=== PATIENT | female | born 1955 | race Caucasian/White ===

== ENCOUNTER 2018-01-08 23:10 | Inpatient (IN) | payer MEDICAID, MEDICARE ==
--- NOTE | 2018-01-08 23:41 | ER Document Report ---
ED General - General Chief Complaint: General Weakness Stated Complaint: WEAKNESS Time Seen by Provider: 01/08/18 23:26 Notes: Patient is a 60-year-old female presents with complaint of waking up this morning with severe headache. No only. No chest pain. No abdominal pain. No fever. Patient says that she also notes that she is weak. She has been having progressively worsening difficulty ambulating throughout the day. She had to be brought back to the room in a wheelchair. She also is having a lot of difficulty swallowing and some difficult breathing. She assumed that maybe she was having some throat swelling in her throat because she is having difficulty swallowing foods and liquids. She denies any itching or rash. No new medications. She might be on a blood thinner but she is not sure. Patient's daughter is at bedside says she does have a stent. Patient did take Ambien today but her symptoms were ongoing before taking the Ambien. TRAVEL OUTSIDE OF THE [place] IN LAST 30 DAYS: No - Related Data Allergies/Adverse Reactions: codeine [Codeine] Allergy (Verified 02/17/13 00:33) amitriptaline Allergy (Uncoded 02/17/13 00:33) Past Medical History - Social History Smoking Status: Unknown if Ever Smoked Frequency of alcohol use: None Drug Abuse: None Family History: Reviewed & Not Pertinent, Other - Past Medical History Cardiac Medical History: Reports: Hx Hypercholesterolemia, Hx Hypertension GI Medical History: Reports: Hx Irritable Bowel Psychiatric Medical History: Reports: Hx Depression Past Surgical History: Reports: Hx Cholecystectomy, Hx Hysterectomy Review of Systems - Review of Systems Notes: My Normal Review Basic REVIEW OF SYSTEMS: CONSTITUTIONAL : Denies fever, chills, or sweats. Denies recent illness. EENT: Denies eye, ear, throat, or mouth pain or symptoms. Denies nasal or sinus congestion. CARDIOVASCULAR: Denies chest pain. RESPIRATORY: Denies cough, cold, or chest congestion. Denies shortness of breath, difficulty breathing, or wheezing. GASTROINTESTINAL: Denies abdominal pain. Denies nausea, vomiting, or diarrhea. MUSCULOSKELETAL: Denies neck or back pain or joint pain or swelling. SKIN: Denies rash or skin lesions. NEUROLOGICAL: Denies altered mental status or loss of consciousness. Had a headache this am. difficulty swallowing. Ataxia. ALL OTHER SYSTEMS REVIEWED AND NEGATIVE. Physical Exam - Vital signs Vitals: Temp Pulse Resp BP Pulse Ox 98.8 F 79 16 175/75 H 96 01/08/18 23:20 01/08/18 23:20 01/08/18 23:20 01/08/18 23:20 01/08/18 23:20 - Notes Notes: General Appearance: Well nourished, alert, cooperative, no acute distress, no obvious discomfort. Vitals: reviewed, See vital signs table. Head: no swelling or tenderness to the head Eyes: PERRL, EOMI, Conjuctiva clear Mouth: No decreasd moisture Throat: No tonsillar inflammation, No airway obstruction, No lymphadenopathy. No glossal oropharyngeal edema. Neck: Supple, no neck tenderness, Lungs: No wheezing, No rales, No rhonci, No accessory muscle use, good air exchange bilaterally. Heart: Normal rate, Regular rythm, No murmur, no rub Abdomen: Normal BS, soft, No rigidity, No abdominal tenderness, No guarding, no rebound, Extremities: Patient is able to lift both legs off the bed but is we can do so. She does have some drift of the right lower extremity. She is able lift both arms off the bed. Right upper extremity is shaky but she is able to hold against gravity., good pulses in all extremities, no swelling or tenderness in the extremities, no edema. Skin: warm, dry, appropriate color, no rash Neuro: speech clear, oriented x 3, normal affect, responds appropriately to questions. Sensation intact. Cranial nerves II through XII are intact but she may be has some quivering to the left side of her face when she tries to do full smile. Not tested because patient was unable to walk back to the room and had to be brought back in a wheelchair. Course - Re-evaluation Re-evalutation: 01/08/18 23:35 I have just evaluated the patient. Patient patient's presentation is suspect most like she has had a stroke either ischemic or hemorrhagic. A basis and the fact that she woke up with a severe headache, she has ataxia, she has sensation of difficulty swallowing, and she has weakness. She initially seemed that there difficult swelling was due to throat swelling however since this morning she has had difficulty swallowing foods and liquids and she has no stridor and no evidence of pharyngeal swelling on exam and no visible neck swelling. I therefore suspect that this is more of a dysphagia from probable stroke. Will take her straight to CT scan. I have ordered blood work. Patient will be closely monitored. 01/09/18 01:53 Reevaluation patient's exam is about the same. Still a bit weaker on the right side with her lower extremity. May be a little weaker than left. Not appreciating any true facial droop however the family describe what sounds to be some facial droop earlier today where they felt like her face looks swollen and was not moving as well. Her speech is still little bit slurred. I suspect that the patient possibly had a stroke. There is no evidence of bleeding and therefore I have given the patient an aspirin. Patient does not have her med list with her. I did see where she is to be on thyroid and therefore ordered a thyroid panel but I think it is unlikely that this was causing her problem. I did speak with the hospitalist, Dr. Longoria, who agrees to admit the patient. Dictation of this chart was performed using voice recognition software; therefore, there may be some unintended grammatical errors. - Vital Signs Vital signs: Temp Pulse Resp BP Pulse Ox 98.8 F 79 16 175/75 H 96 01/08/18 23:20 01/08/18 23:20 01/08/18 23:20 01/08/18 23:20 01/08/18 23:20 - Laboratory Result Diagrams: 01/08/18 23:34 01/08/18 23:34 Laboratory results interpreted by me: 01/08/18 01/09/18 23:34 00:06 Potassium 3.0 L* Chloride 94 L Glucose 258 H Urine Protein 100 H Urine Glucose (UA) 50 H Urine Urobilinogen 2.0 H Discharge - Discharge Clinical Impression: Weakness Dysphagia Qualifiers: Dysphagia type: unspecified Qualified Code(s): R13.10 - Dysphagia, unspecified Condition: Stable Disposition: ADMITTED OBSERVATION Admitting Provider: Hospitalist Unit Admitted: IMCU Referrals: SHELLI OH MD [ACTIVE STAFF] - Follow up as needed
[2018-01-08 23:46] LABS: ABSOLUTE EOSINOPHILS # (AUTO) 0.1 10^3/uL (0.0-0.6); ABSOLUTE LYMPHOCYTES (AUTO) 2.4 10^3/uL (0.5-4.7); ABSOLUTE MONOCYTES (AUTO) 0.5 10^3/uL (0.1-1.4); BASOPHILS % (AUTO) 0.3 % (0-2); EOSINOPHILS % (AUTO) 1.3 % (0-6); HEMATOCRIT 37.3 % (36.0-47.0); HEMOGLOBIN 13.2 g/dL (12.0-15.5); LYMPHOCYTES % (AUTO) 23.4 % (13-45); MEAN CORPUSCULAR HEMOGLOBIN 30.9 pg (27.0-33.4); MEAN CORPUSCULAR HGB CONC 35.3 g/dL (32.0-36.0); MEAN CORPUSCULAR VOLUME 88 fl (80-97); MONOCYTES % (AUTO) 5.4 % (3-13); PLATELET COUNT 201 10^3/uL (150-450); RED BLOOD COUNT 4.26 10^6/uL (3.72-5.28); SEGMENTED NEUTROPHILS % (AUTO) 69.6 % (42-78); TOTAL CELLS COUNTED % (AUTO) 100 %; WHITE BLOOD COUNT 10.1 10^3/uL (4.0-10.5)
--- NOTE | 2018-01-08 23:52 | RADIOLOGY REPORT (SQ) ---
EXAM DESCRIPTION: CT HEAD WITHOUT IV CONTRAST COMPLETED DATE/TME: 01/08/2018 23:33 CLINICAL HISTORY: 62 years Female, headache, weakness, ataxia COMPARISON: None. TECHNIQUE: No contrast. Coronal and sagittal reformat. This exam was performed according to our departmental dose-optimization program, which includes automated exposure control, adjustment of the mA and/or kV according to patient size and/or use of iterative reconstruction technique. FINDINGS: No hemorrhage or infarct. No mass, mass effect, or midline shift. Brain and extra-axial structures appear intact. IMPRESSION: Normal CT of the head.
[2018-01-08 23:55] LABS: INTERNATIONAL RATION (INR) 0.87; PROTHROMBIN TIME 12.3 SEC (11.4-15.4)
--- NOTE | 2018-01-08 23:57 | RADIOLOGY REPORT (SQ) ---
EXAM DESCRIPTION: XR CHEST 1 VIEW COMPLETED DATE/TME: 01/08/2018 23:34 CLINICAL HISTORY: 62 years Female, weakness COMPARISON: None. NUMBER OF VIEWS/TECHNIQUE: 1/AP FINDINGS: Adequate lung volume, clear parenchyma, normal cardiac silhouette, and intact bony thorax. IMPRESSION: No acute cardiopulmonary findings.
[2018-01-08 23:59] LABS: ALANINE AMINOTRANSFERASE 24 U/L (9-52); ALKALINE PHOSPHATASE 85 U/L (38-126); ANION GAP 15 (5-19); ASPARTATE AMINO TRANSFERASE 28 U/L (14-36); BILIRUBIN,DIRECT 0.3 mg/dL (0.0-0.4); BILIRUBIN,TOTAL 0.6 mg/dL (0.2-1.3); BLOOD UREA NITROGEN 10 mg/dL (7-20); CALCIUM 9.1 mg/dL (8.4-10.2); CARBON DIOXIDE 30 mmol/L (22-30); CHLORIDE 94 mmol/L (98-107); GLUCOSE 258 mg/dL (75-110); SODIUM 139.3 mmol/L (137-145); TOTAL PROTEIN 7.4 g/dL (6.3-8.2)
[2018-01-09 00:09] LABS: PARTIAL THROMBOPLASTIN TIME 26.3 SEC (23.5-35.8)
[2018-01-09 00:31] LABS: APPEARANCE,URINE CLEAR; BILIRUBIN,URINE NEGATIVE (NEGATIVE); COLOR,URINE YELLOW; GLUCOSE, URINE 50 mg/dL (NEGATIVE); KETONES,URINE NEGATIVE (NEGATIVE); LEUKOCYTE ESTERASE,URINE NEGATIVE (NEGATIVE); NITRITE,URINE NEGATIVE (NEGATIVE); PROTEIN,URINE 100 mg/dL (NEGATIVE); URINE SPECIFIC GRAVITY 1.028
[2018-01-09] MEDS ORDERED: ASPIRIN 325 MG TABLET PO ONE (01:51)
[2018-01-09] MEDS ORDERED: POTASSI CL 20 MEQ/50 ML RIDER 20 MEQ/50 ML RTUPB IV ONE ×3 (01:55→05:37)
[2018-01-09] MEDS ORDERED: MAGNESIUM HYDROXIDE SUSP 30 ML UDCUP PO PRN (01:58)
[2018-01-09] MEDS ORDERED: DOCUSATE SODIUM 100 MG CAPSULE PO PRN (01:58)
[2018-01-09] MEDS ORDERED: ACETAMINOPHEN 325 MG TABLET PO PRN (01:58)
[2018-01-09] MEDS ORDERED: ATORVASTATIN CALCIUM 80 MG TABLET PO ONE (02:15)
[2018-01-09 02:29] LABS: FREE T3 2.29 pg/mL (2.77-5.27); FREE T4 (FREE THYROXINE) 0.99 ng/dL (0.78-2.19)
[2018-01-09 02:39] LABS: URINE AMPHETAMINES SCREEN NEGATIVE; URINE BARBITURATES SCREEN NEGATIVE; URINE BENZODIAZEPINES SCREEN NEGATIVE; URINE COCAINE SCREEN NEGATIVE; URINE MARIJUANA (THC) SCREEN NEGATIVE; URINE METHADONE SCREEN NEGATIVE; URINE PHENCYCLIDINE SCREEN NEGATIVE
[2018-01-09 02:43] LABS: THYROID STIMULATING HORMONE 3.05 uIU/mL (0.47-4.68)
[2018-01-09] MEDS ORDERED: POTASSIUM CHLORIDE 10 MEQ CAPSULE.ER PO ONE (02:52)
--- NOTE | 2018-01-09 03:05 | PDOC H&P ---
History of Present Illness Admission Date/PCP: 01/09/18 02:15 Patient complains of: Difficulty swallowing History of Present Illness: HITESH KENT is a 62 year old female with a past medical history of schizophrenia on Zyprexa, Risperdal, Cogentin and Zoloft who presents after awakening with headache later developing difficulty with ambulation and weakness to the left side of her face. In the emergency room she is found to have an unremarkable workup and referred to the hospitalist for observation. Patient denies previous episode but further explains her belief that headaches are caused by worms beneath the skin of her nose ( her nose is severely excoriated from scratching) she also describes the weakness of her face in a diagonal fashion from the top right to the bottom left. She is given a swallow screen and fails only to eat licorice promptly afterwards. Patient is a poor historian regarding her medication use. Past Medical History Cardiac Medical History: Reports: Hyperlipidema, Hypertension Psychiatric Medical History: Reports: Depression, Schizoaffective Disorder Hematology: Reports: None Infectious Medical History: Reports: None Past Surgical History Past Surgical History: Reports: Cardiac Catheterization - stent, Cholecystectomy , Hysterectomy Social History Information Source: Patient, [facility] Lives with: Family Smoking Status: Current Every Day Smoker Frequency of Alcohol Use: Rare - Advance Directive Resuscitation Status: Full Code Family History Family History: Other - Unknown to patient Parental Family History Reviewed: No Children Family History Reviewed: No Sibling(s) Family History Reviewed.: No Medication/Allergy Home Medications: Estradiol [Vivelle-Dot] 1 each TD PRN PRN 01/09/13 Febuxostat [Uloric 40 Mg Tablet] 40 mg PO DAILY 01/09/13 Levothyroxine Sodium [Synthroid 0.025 mg Tablet] 25 mcg PO DAILY 01/09/13 Lisinopril [Prinivil 10 mg Tablet] 10 mg PO DAILY 01/09/13 Benztropine Mesylate [Benztropine Mesylate 2 mg Tablet] 2 mg PO BID 02/21/13 Benztropine Mesylate [Cogentin 1 Mg Tablet] 1 mg PO QHS #20 tablet 02/21/13 Cephalexin Monohydrate [Keflex 500 mg Capsule] 500 mg PO QID #40 capsule Estradiol [Divigel] 0.075 mg TD DAILY 02/21/13 Hydrochlorothiazide 25 mg PO DAILY 02/21/13 Hydroxyzine Pamoate [Vistaril 50 Mg Capsule] 50 mg PO Q8 PRN 02/21/13 Loratadine [Alavert] 10 mg PO 02/21/13 Olanzapine [Zyprexa] 10 mg PO QHS #20 tablet 02/21/13 Polyethylene Glycol 3350 [Miralax Powder 17 Gm/Packet] 17 gm PO Q8 #10 powd.pack 02/21/13 Risperidone [Risperdal M-Tab] 2 mg PO 02/21/13 Sertraline HCl [Zoloft] 100 mg PO DAILY #20 tablet 02/21/13 Venlafaxine HCl ER [Effexor Xr 37.5 mg Cap.sr] 02/21/13 Allergies/Adverse Reactions: codeine [Codeine] Allergy (Verified 02/17/13 00:33) amitriptaline Allergy (Uncoded 02/17/13 00:33) Review of Systems ROS unobtainable: Due to mental status - Unreliable historian, admits to all questions affirmatively Physical Exam Vital Signs: Temp Pulse Resp BP Pulse Ox 98.8 F 78 21 H 175/75 H 94 01/08/18 23:20 01/08/18 23:25 01/09/18 02:00 01/08/18 23:20 01/09/18 02:00 General appearance: PRESENT: no acute distress, well-developed, well-nourished Head exam: PRESENT: atraumatic, normocephalic Eye exam: PRESENT: conjunctiva pink, EOMI, PERRLA. ABSENT: scleral icterus Ear exam: PRESENT: normal external ear exam Mouth exam: PRESENT: moist, tongue midline Neck exam: ABSENT: carotid bruit, JVD, lymphadenopathy, thyromegaly Respiratory exam: PRESENT: clear to auscultation nakul. ABSENT: rales, rhonchi, wheezes Cardiovascular exam: PRESENT: RRR. ABSENT: diastolic murmur, rubs, systolic murmur Pulses: PRESENT: normal dorsalis pedis pul Vascular exam: PRESENT: normal capillary refill GI/Abdominal exam: PRESENT: normal bowel sounds, soft. ABSENT: distended, guarding, mass, organolmegaly, rebound, tenderness Rectal exam: PRESENT: deferred Extremities exam: PRESENT: full ROM. ABSENT: calf tenderness, clubbing, pedal edema Neurological exam: PRESENT: alert, awake, oriented to person, oriented to place , oriented to time, oriented to situation, CN II-XII grossly intact. ABSENT: motor sensory deficit Psychiatric exam: PRESENT: appropriate affect, normal mood. ABSENT: homicidal ideation, suicidal ideation Skin exam: PRESENT: dry, intact, warm. ABSENT: cyanosis, rash Results Impressions: Head CT 01/08/18 23:33 IMPRESSION: Normal CT of the head. Chest X-Ray 01/08/18 23:34 IMPRESSION: No acute cardiopulmonary findings. Assessment & Plan - Diagnosis (1) Schizophrenia Is this a current diagnosis for this admission?: Yes Plan: Supportive measures, resume outpatient regiment, consider psychiatry consult (2) Morbid obesity Is this a current diagnosis for this admission?: Yes Plan: Morbid obesity will evaluate for metabolic cause with evaluation of thyroid function and dietitian consultation (3) Tobacco abuse Is this a current diagnosis for this admission?: Yes Plan: Tobacco Dependence patient received tobacco cessation counseling and offered nicotine replacement options (4) Hyperglycemia Is this a current diagnosis for this admission?: Yes Plan: Evaluate A1c - Time Time Spent: 30 to 50 Minutes
[2018-01-09] MEDS ORDERED: OLANZAPINE 5 MG TABLET PO ONE (03:45)
[2018-01-09] MEDS ORDERED: BENZTROPINE MESYLATE 1 MG TABLET PO ONE (03:45)
--- NOTE | 2018-01-09 06:12 | EKG REPORT ---
SEVERITY:- ABNORMAL ECG - SINUS RHYTHM ABNRM R PROG, CONSIDER ASMI OR LEAD PLACEMENT NONSPECIFIC ST-T CHANGES, DIFFUSE : Confirmed by: Alvarado Delong MD 09-Jan-2018 06:11:47
[2018-01-09 06:36] LABS: CHOLESTEROL 127.67 mg/dL (0-200); TRIGLYCERIDES 219 mg/dL (<150)
[2018-01-09 06:46] LABS: DIRECT LDL 49 mg/dL (<100)
[2018-01-09 06:49] LABS: VLDL CHOLESTEROL 43.8 mg/dL (10-31)
[2018-01-09] MEDS: HEPARIN SOD (PORCINE) 5,000 UNIT/ML 1 ML SYRINGE SUBCUT SCH ×3 (07:12→22:34)
[2018-01-09] MEDS ORDERED: ASPIRIN 325 MG TABLET, ENT COATED PO SCH (10:00)
[2018-01-09] MEDS: RISPERIDONE 1 MG TABLET PO SCH ×2 (10:55→14:18)
[2018-01-09] MEDS: POTASSIUM CHLORIDE 20 MEQ/50 ML RTU IV SCH ×2 (10:59→14:27)
[2018-01-09] MEDS ORDERED: ONDANSETRON HCL 8 MG TABLET PO PRN (13:15)
--- NOTE | 2018-01-09 13:20 | Progress Note ---
Provider Note Provider Note: This is 62 years old female patient with schizophrenia admitted this morning with chief complaint of difficulty swallowing. On the floor patient evaluated by the nurse in charge of her and patient able to swallow without difficulty. Accept this patient on with her primary set attending.
[2018-01-09] MEDS: HYDROCHLOROTHIAZIDE 25 MG TABLET PO SCH (14:36)
--- NOTE | 2018-01-09 15:45 | RADIOLOGY REPORT (SQ) ---
EXAM DESCRIPTION: CAROTID DOPPLER COMPLETED DATE/TIME: 01/09/2018 2:42 pm REASON FOR STUDY: tia COMPARISON: CT brain 03/12/2010, 01/08/2018 TECHNIQUE: Grayscale ultrasound, Doppler velocity and spectra, and color Doppler images acquired of the extra-cranial carotid and vertebral arteries. Images stored on PACS. LIMITATIONS: None. FINDINGS: RIGHT CAROTID CCA Velocities: Within normal limits. ICA Velocities Peak systolic 0.94 m/s. End diastolic 0.29 m/s. Proximal ICA/CCA peak systolic ratio 1.3. Spectra normal. No significant plaque. LEFT CAROTID CCA Velocities: Within normal limits. ICA Velocities Peak systolic 1.15 m/s. End diastolic 0.34 m/s. Proximal ICA/CCA peak systolic ratio 1.35. Calcific plaque at the left carotid bifurcation without flow significant stenosis of the proximal lef t ICA VERTEBRAL ARTERIES: Antegrade flow. Normal waveforms. SUBCLAVIAN ARTERIES: Not evaluated OTHER: No other significant finding. IMPRESSION: No flow significant stenosis at the carotid bifurcations bilaterally. Antegrade pulsatile vertebral artery flow bilaterally COMMENT: Quality ID #[id number]: Velocity criteria are extrapolated from the diameter data as defined by t he Society of Radiologists in Ultrasound Consensus Conference. Radiology 2003: 229; 340-346. TECHNICAL DOCUMENTATION: JOB ID: [id number] [employer]- All Rights Reserved Reading location - IP/workstation name: [facility]-[email or web address]
[2018-01-09] MEDS ORDERED: FLUCONAZOLE 100 MG TABLET PO ONE (16:00)
[2018-01-09] MEDS ORDERED: AMLODIPINE BESYLATE 10 MG TABLET PO ONE (16:15)
[2018-01-09] MEDS: ZOLPIDEM TARTRATE 5 MG TABLET PO SCH (20:23)
[2018-01-09] MEDS ORDERED: (PENDING PHARMACY ID) (Zolpidem Tartrate [Ambien] 10 MG) PO SCH (22:00)
[2018-01-09] MEDS ORDERED: ZOLPIDEM TARTRATE 5 MG TABLET PO SCH (22:00)
[2018-01-09] MEDS ORDERED: ATORVASTATIN CALCIUM 80 MG TABLET PO SCH (22:00)
[2018-01-09] MEDS: GABAPENTIN 400 MG CAPSULE PO SCH (22:34)
[2018-01-09] MEDS: ATORVASTATIN CALCIUM 40 MG TABLET PO SCH (22:34)
[2018-01-09] MEDS: OLANZAPINE 5 MG TABLET PO SCH (22:34)
[2018-01-09] MEDS: BENZTROPINE MESYLATE 1 MG TABLET PO SCH (22:40)
[2018-01-10] MEDS: HEPARIN SOD (PORCINE) 5,000 UNIT/ML 1 ML SYRINGE SUBCUT SCH ×3 (06:05→22:53)
[2018-01-10] MEDS: GABAPENTIN 400 MG CAPSULE PO SCH ×3 (06:06→22:52)
[2018-01-10] MEDS: HYDROCHLOROTHIAZIDE 25 MG TABLET PO SCH (09:16)
[2018-01-10] MEDS: POTASSIUM CHLORIDE 10 MEQ CAPSULE.ER PO SCH (09:16)
[2018-01-10] MEDS: ASPIRIN 81 MG TABLET, ENT COATED PO SCH (09:16)
[2018-01-10] MEDS: CETIRIZINE 10 MG TABLET PO SCH (09:17)
[2018-01-10] MEDS: RISPERIDONE 1 MG TABLET PO SCH (09:17)
--- NOTE | 2018-01-10 12:42 | RADIOLOGY REPORT (SQ) ---
EXAM DESCRIPTION: MRI HEAD WITHOUT COMPLETED DATE/TIME: 01/10/2018 11:51 am REASON FOR STUDY: stroke COMPARISON: CT Brain 01/08/2018 Carotid Doppler 01/09/2018 TECHNIQUE: Multiplanar imaging includes non-contrasted T1, T2, FLAIR, and diffusion with ADC map seq uences. Images stored on PACS. LIMITATIONS: None. FINDINGS: ANATOMY: No developmental anomalies. Pituitary fossa normal. CSF SPACES: Normal in size and contour. No hemorrhage. CEREBRUM: Sulci and gyri normal in size and contour. Normal white matter signal on FLAIR imaging. No evidence of hemorrhage, mass, or extraaxial fluid collection. POSTERIOR FOSSA: Diffusion-weighted images are positive for acute ischemia in the left posterior infe rior cerebellar hemisphere and lateral medulla, best shown on diffusion images 5-7. No mass effect. No hemorrhage. On axial T2 weighted image 1, there is abnormal signal in the left cervical vertebral artery. This i s also seen on coronal T2 image 17, and is worrisome for a left vertebral artery dissection or thromb osis. CTA neck/[place] of [place] recommended. These findings were discussed with Dr. Wright, 1210 urs 01/10/2018. DIFFUSION IMAGING: Positive for acute ischemic change in the left PICA distribution ORBITS: No masses. Globes normal. PARANASAL SINUSES: No fluid levels. Mucosa normal. OTHER: 10 mm cystic nodule superficial lobe right parotid gland. This could represent a small benign mixed tumor. Malignant nodule could not entirely be excluded. IMPRESSION: Diffusion-weighted images are positive for nonhemorrhagic acute infarct in the left PICA distribution. Abnormal signal in the left vertebral artery on T2 weighted images. Findings are wor risome for dissection. This report was discussed with the patient's hospitalist physician as above. EVIDENCE OF ACUTE STROKE: Yes TECHNICAL DOCUMENTATION: JOB ID: [id number] [employer]- All Rights Reserved Reading location - IP/workstation name: [email or web address]
[2018-01-10] MEDS: ZOLPIDEM TARTRATE 5 MG TABLET PO SCH (22:14)
[2018-01-10] MEDS: ATORVASTATIN CALCIUM 40 MG TABLET PO SCH (22:52)
[2018-01-10] MEDS: OLANZAPINE 5 MG TABLET PO SCH (22:53)
[2018-01-10] MEDS: BENZTROPINE MESYLATE 1 MG TABLET PO SCH (22:53)
--- NOTE | 2018-01-11 00:26 | RADIOLOGY REPORT (SQ) ---
EXAM DESCRIPTION: CT NECK ANGIOGRAPHY WITHOUT THEN WITH IV CONTRAST, CT HEAD ANGIOGRAPHY WITHOUT THEN WITH IV CONTRAST COMPLETED DATE/TME: 01/10/2018 00:00 CLINICAL HISTORY: Stroke COMPARISON: CT of the head 01/08/2018 TECHNIQUE: Continuous axial CTA images of the head and neck obtained following the uncomplicated intravenous administration of 70 mL Omnipaque 350. 3-D/MIP reformatted images available. Overall contrast boluses delayed and suboptimal with significant venous contamination. FINDINGS: CTA HEAD: Anterior circulation: The intracranial internal carotid arteries have normal course and caliber without evidence of dissection, stenosis, or occlusion. The internal carotid arteries bifurcate into widely patent A1 and M1 segments of the anterior and middle cerebral arteries respectively. The anterior communicating artery is patent. The right posterior communicating artery is patent. The left posterior communicating artery is hypoplastic. No evidence of stenosis, occlusion, or aneurysm in the anterior circulation. No peripheral vascular pruning identified. Posterior circulation: Nondominant right vertebral artery terminates predominantly in the right PICA with minimal flow being supplied to basilar artery. Only the most distal portion of the left intracranial vertebral artery is filling. No flow identified in the left PICA. The basilar artery is patent and may be supplied abdominal by the posterior communicating artery/anterior circulation. The basilar artery bifurcates into widely patent P1 segments of the posterior cerebral arteries. No evidence of stenosis, occlusion, or aneurysm in the posterior cerebral arteries. CTA NECK: The aortic arch is widely patent. Mild atherosclerotic calcification of the thoracic aorta. Normal branch pattern arising from the superior surface of the aortic arch. The origins of the right brachiocephalic artery, right subclavian artery, right common carotid artery, left subclavian artery, and left common carotid artery are widely patent. Right carotid: The right common carotid artery is widely patent and bifurcates into widely patent internal and external carotid arteries. No evidence of stenosis, dissection, or occlusion. 0% stenosis by NASCET criteria. Left carotid: The left common carotid artery is widely patent and bifurcates into internal and external carotid arteries. Extensive atherosclerotic plaque at the origin of the left internal carotid artery No evidence of flow-limiting stenosis, dissection, or occlusion. 20% stenosis by NASCET criteria. Vertebral arteries: The origin of the right vertebral artery is patent. The right vertebral artery is patent throughout its course with diminutive caliber. No evidence of flow-limiting stenosis, dissection, occlusion of the right vertebral artery. The left vertebral artery is not identified arising from the left subclavian artery. The entire V1 segment of the left vertebral artery is not identified. There is mild reconstitution of flow flow in the V2 segment of the left vertebral artery at the level of the C3 and C4 vertebral levels. No definite flow identified in the V3 portion of the cervical vertebral artery. Nonvascular findings: No definite abnormalities of visualized neck soft tissues. Visualized lung apices demonstrate no pneumothorax. Visualized thyroid gland is unremarkable. No definite cervical lymphadenopathy. Visualized parotid and submandibular glands are unremarkable. No gross abnormalities of the pharynx or hypopharynx. Visualized orbits and globes are unremarkable. Visualized intracranial contents demonstrate no gross abnormalities. No definite acute abnormalities of visualized cervical spine. No definite facial bone fracture identified. Mastoid air cells are well aerated. Visualized paranasal sinuses are well aerated DLP: 653.36 mGy-cm IMPRESSION: 1. There is no flow identified throughout the majority of the left cervical vertebral artery with short segment minimal reconstitution of flow in the V2 portion of the left cervical vertebral artery at the level of the C3 and C4 vertebral bodies. These findings could be seen with vertebral artery dissection or occlusion. 2. The left intracranial (V4) segment of the left vertebral artery only fills at its most distal aspect likely retrograde. There is also no flow identified in the left PICA. 3. The right vertebral artery is likely nondominant and predominant supplies the right PICA with minimal flow provided to the basilar artery. 4. The basilar artery is likely supplied predominantly by the right posterior communicating artery/anterior circulation. 5. Approximately 20% stenosis of the proximal left internal carotid artery by NASCET criteria. 6. No abnormalities identified in the anterior intracranial circulation. 7. No evidence of stenosis involving the right carotid artery. Urgent finding reported to TUAN Malone at 01/10/2018 11:23 PM CDT This exam was performed according to our departmental dose-optimization program, which includes automated exposure control, adjustment of the mA and/or kV according to patient size and/or use of iterative reconstruction technique. 2011 [employer]- All Rights Reserved
[2018-01-11] MEDS: HEPARIN SOD (PORCINE) 5,000 UNIT/ML 1 ML SYRINGE SUBCUT SCH (05:05)
[2018-01-11] MEDS: GABAPENTIN 400 MG CAPSULE PO SCH ×2 (05:05→16:22)
[2018-01-11] MEDS ORDERED: HEPARIN SODIUM,PORCINE/D5W 25,000 UNIT/250 ML RTUINJ IV PRN (08:37)
--- NOTE | 2018-01-11 09:08 | PDOC PROGRESS REPORT ---
Subjective Progress Note for:: 01/10/18 Subjective:: The patient is resting comfortably. No new complaints. She presented with some altered mental status consistent with her mental illness, but also difficulty with walking, right upper and lower extremity weakness, dysphagia, and facial droop. No new complaints. Reason For Visit: ACUTE INFARCT,SCHIZOPHRENIA Physical Exam Vital Signs: Temp Pulse Resp BP Pulse Ox 97.6 F 70 16 143/85 H 94 01/10/18 11:03 01/10/18 12:00 01/10/18 12:00 01/10/18 12:00 01/10/18 12:00 General appearance: PRESENT: no acute distress, cooperative, morbidly obese Head exam: PRESENT: atraumatic, normocephalic Ear exam: PRESENT: normal external ear exam. ABSENT: bleeding, drainage Mouth exam: PRESENT: moist, neck supple. ABSENT: laceration Neck exam: ABSENT: JVD, lymphadenopathy, thyromegaly Respiratory exam: PRESENT: other - No increased work of breathing. No wheezes, rales, or rhonchi. No tactile fremitus. Cardiovascular exam: PRESENT: RRR. ABSENT: gallop, rubs, systolic murmur Pulses: PRESENT: normal dorsalis pedis pul GI/Abdominal exam: PRESENT: soft. ABSENT: distended, mass, organolmegaly, tenderness Rectal exam: PRESENT: deferred Extremities exam: ABSENT: clubbing, joint swelling, tenderness Musculoskeletal exam: ABSENT: deformity, dislocation Neurological exam: PRESENT: alert, awake, motor sensory deficit - Facial droop, right upper and lower extremity weakness. Psychiatric exam: PRESENT: other - psychosis. Skin exam: PRESENT: dry, intact, warm Results Impressions: Head CT 01/08/18 23:33 IMPRESSION: Normal CT of the head. Chest X-Ray 01/08/18 23:34 IMPRESSION: No acute cardiopulmonary findings. Carotid Doppler Study 01/09/18 02:01 IMPRESSION: No flow significant stenosis at the carotid bifurcations bilaterally. Antegrade pulsatile vertebral artery flow bilaterally Head MRI 01/10/18 00:00 IMPRESSION: Diffusion-weighted images are positive for nonhemorrhagic acute infarct in the left PICA distribution. Abnormal signal in the left vertebral artery on T2 weighted images. Findings are worrisome for dissection. This report was discussed with the patient's hospitalist physician as above. EVIDENCE OF ACUTE STROKE: Yes Assessment & Plan - Diagnosis (1) CVA (cerebrovascular accident) Qualifiers: CVA mechanism: unspecified Qualified Code(s): I63.9 - Cerebral infarction, unspecified Is this a current diagnosis for this admission?: Yes Plan: MRI indicates a cerebellar stroke. I discussed the patient with Dr. Paredes, and she recommends a CTA to investigate the possibility of a possible vertebral body dissection. Remainder of work up is pending. (2) Dysphagia Qualifiers: Dysphagia type: unspecified Qualified Code(s): R13.10 - Dysphagia, unspecified Is this a current diagnosis for this admission?: Yes Plan: As per MARKETING SEGMENT MANAGER (3) Hyperglycemia Is this a current diagnosis for this admission?: Yes Plan: HbA1c is 6.0. Actually DM II. but diet controlled. The patient should have diabetic teaching before discharge. Start Metformin 48 hours after last dye load. (4) Morbid obesity Is this a current diagnosis for this admission?: Yes Plan: Recommend reasonable weight loss. (5) Schizophrenia Is this a current diagnosis for this admission?: Yes Plan: Continue home medications. (6) Tobacco abuse Is this a current diagnosis for this admission?: Yes (7) Weakness Is this a current diagnosis for this admission?: Yes Plan: PT/OT once work up is completed. - Time Time Spent with patient: 35 or more minutes Medications reviewed and adjusted accordingly: Yes
--- NOTE | 2018-01-11 09:21 | PDOC TRANSFER SUMMARY ---
General Admission Date/PCP: 01/10/18 14:14 Resuscitation Status: Full Code - Transfer Diagnosis (1) CVA (cerebrovascular accident) Is this a current diagnosis for this admission?: Yes (2) Dysphagia Is this a current diagnosis for this admission?: Yes (3) Hyperglycemia Is this a current diagnosis for this admission?: Yes (4) Morbid obesity Is this a current diagnosis for this admission?: Yes (5) Schizophrenia Is this a current diagnosis for this admission?: Yes (6) Tobacco abuse Is this a current diagnosis for this admission?: Yes (7) Weakness Is this a current diagnosis for this admission?: Yes (8) Vertebral artery dissection Is this a current diagnosis for this admission?: Yes - Transfer Medications Home Medications: Aspirin [Aspirin EC] 81 mg PO DAILY 01/09/18 Atorvastatin Calcium [Lipitor 40 mg Tablet] 40 mg PO QHS 01/09/18 Cetirizine HCl [24Hour Allergy] 10 mg PO DAILY 01/09/18 Ergocalciferol (Vitamin D2) [Vitamin D2] 50,000 unit PO Q7D 01/09/18 Gabapentin [Neurontin] 800 mg PO TID 01/09/18 Hydrochlorothiazide [Hydrodiuril 25 mg Tablet] 25 mg PO QAM 01/09/18 Metronidazole 45 gm TP ASDIR PRN 01/09/18 Mupirocin 1 dose TP ASDIR PRN 01/09/18 Ondansetron HCl [Zofran 8 mg Tablet] 8 mg PO DAILYP PRN 01/09/18 Potassium Chloride [Klor-Con 10 Meq Capsule ER] 10 meq PO DAILY 01/09/18 Zolpidem Tartrate [Ambien] 10 mg PO QHS 01/09/18 Transfer Medications: Current Medications Acetaminophen (Tylenol 325 Mg Tablet) 650 mg PO Q4HP PRN PRN Reason: Temp greater than 101F Stop: 02/08/18 01:57 Last Admin: 01/09/18 22:42 Dose: 650 mg Aspirin (Ecotrin 81 Mg Ec Tablet) 81 mg PO DAILY [facility] Stop: 02/09/18 09:59 Last Admin: 01/10/18 09:16 Dose: 81 mg Atorvastatin Calcium (Lipitor 40 Mg Tablet) 40 mg PO QHS [facility] Stop: 02/08/18 21:59 Last Admin: 01/10/18 22:52 Dose: 40 mg Benztropine Mesylate (Cogentin 1 Mg Tablet) 1 mg PO QHS [facility] Stop: 02/08/18 21:59 Last Admin: 01/10/18 22:53 Dose: 1 mg Cetirizine HCl (Zyrtec 10 Mg Tablet) 10 mg PO DAILY [facility] Stop: 02/09/18 09:59 Last Admin: 01/10/18 09:17 Dose: 10 mg Docusate Sodium (Colace 100 Mg Capsule) 100 mg PO BIDP PRN PRN Reason: FOR CONSTIPATION Stop: 02/08/18 01:57 Last Admin: 01/11/18 06:43 Dose: 100 mg Ergocalciferol (Drisdol 50,000 Unit (1.25mg) Capsule) 50,000 unit PO Ramesh@1000 [facility] Stop: 02/14/18 09:59 Gabapentin (Neurontin 400 Mg Capsule) 800 mg PO Q8 [facility] Stop: 02/08/18 21:59 Last Admin: 01/11/18 05:05 Dose: 800 mg Heparin Sodium (Porcine) (Heparin Inj 1,000 Unit/Ml 10 Ml Vial) 0 - 12,000 unit IV .BOLUS PER PROTOCOL PRN; Protocol PRN Reason: RESPOND TO aPTT VALUE Stop: 02/10/18 11:37 Hydrochlorothiazide (Hydrodiuril 25 Mg Tablet) 25 mg PO QAM [facility] Stop: 02/08/18 14:59 Last Admin: 01/10/18 09:16 Dose: 25 mg Heparin Sodium/Dextrose (Heparin Rtu 25,000 Unit/250 Ml D5w Premix) 25,000 unit in 250 mls @ 0 mls/hr IV CONTINUOUS PRN; Protocol; Titrate PRN Reason: THIS MED IS NOT "PRN" Stop: 02/10/18 08:36 Magnesium Hydroxide (Milk Of Magnesia 30 Ml Udcup) 30 ml PO HSP PRN PRN Reason: FOR CONSTIPATION Stop: 02/08/18 01:57 Olanzapine (Zyprexa 5 Mg Tablet) 10 mg PO QHS [facility] Stop: 02/08/18 21:59 Last Admin: 01/10/18 22:53 Dose: 10 mg Ondansetron HCl (Zofran 8 Mg Tablet) 8 mg PO DAILYP PRN PRN Reason: NAUSEA Stop: 02/08/18 13:14 Last Admin: 01/09/18 14:27 Dose: 8 mg Potassium Chloride (Klor-Con 10 Meq Capsule Er) 10 meq PO DAILY [facility] Stop: 02/09/18 09:59 Last Admin: 01/10/18 09:16 Dose: 10 meq Risperidone (Risperdal 1 Mg Tablet) 2 mg PO DAILY [facility] Stop: 02/08/18 09:59 Last Admin: 01/10/18 09:17 Dose: 2 mg Sodium Chloride (Saline Flush 2.5 Ml Monoject Prefil Syrin) 2.5 ml IV Q8 [facility] Stop: 02/08/18 05:59 Last Admin: 01/11/18 05:10 Dose: 2.5 ml Zolpidem Tartrate (Ambien 5 Mg Tablet) 10 mg PO DAILY@1999 [facility] Stop: 01/16/18 19:59 Last Admin: 01/10/18 22:14 Dose: 10 mg - Allergies Allergies/Adverse Reactions: codeine [Codeine] Allergy (Unknown, Verified 01/09/18 10:05) amitriptyline [From Elavil] Allergy (Verified 01/09/18 10:04) Hospital Course Hospital Course: The patient was admitted to [facility]. She was given an aspirin. She had a CT head that was unremarkable. MRI of her brain indicated some small infarcts of her cerebellum. The radiologist was also concerned about the possibility of vertebral artery dissection, so a CTA neck was obtained that confirmed this suspicion. I discussed the patient with the ICU doctor and a neurosurgeon at [facility] in [place]. They accepted the patient in transfer and asked that I start her on a heparin drip. Nursing has advised me that the patient will need a PICC first. This has been ordered STAT. Physical Exam Vital Signs: Temp Pulse Resp BP Pulse Ox 98.3 F 67 14 152/73 H 96 01/11/18 07:44 01/11/18 07:44 01/11/18 07:44 01/11/18 07:44 01/11/18 07:44 Intake & Output 01/10/18 01/11/18 01/12/18 06:59 06:59 06:59 Intake Total 525 Balance 525 Weight 101.3 kg General appearance: PRESENT: no acute distress, cooperative Head exam: PRESENT: atraumatic, normocephalic Respiratory exam: PRESENT: other - No increased work of breathing. No wheezes, rales, or rhonchi. No tactile fremitus. Cardiovascular exam: PRESENT: RRR. ABSENT: gallop, rubs, systolic murmur GI/Abdominal exam: PRESENT: soft, other - Obese. Bowel sounds are distant. I am unable to evaluate the abdomen for organomegaly, masses, or hernias due to her body habitus.. ABSENT: tenderness Rectal exam: PRESENT: deferred Neurological exam: PRESENT: alert, awake, oriented to person, oriented to place , oriented to time, oriented to situation, CN II-XII grossly intact - Left sided facial droop, slight dysarthria, motor sensory deficit - 4/5 weakness on the right upper and lower extremity. Skin exam: PRESENT: dry, intact, warm Results Impressions: Head CT 01/08/18 23:33 IMPRESSION: Normal CT of the head. Chest X-Ray 01/08/18 23:34 IMPRESSION: No acute cardiopulmonary findings. Carotid Doppler Study 01/09/18 02:01 IMPRESSION: No flow significant stenosis at the carotid bifurcations bilaterally. Antegrade pulsatile vertebral artery flow bilaterally Head CTA 01/10/18 00:00 IMPRESSION: 1. There is no flow identified throughout the majority of the left cervical vertebral artery with short segment minimal reconstitution of flow in the V2 portion of the left cervical vertebral artery at the level of the C3 and C4 vertebral bodies. These findings could be seen with vertebral artery dissection or occlusion. 2. The left intracranial (V4) segment of the left vertebral artery only fills at its most distal aspect likely retrograde. There is also no flow identified in the left PICA. 3. The right vertebral artery is likely nondominant and predominant supplies the right PICA with minimal flow provided to the basilar artery. 4. The basilar artery is likely supplied predominantly by the right posterior communicating artery/anterior circulation. 5. Approximately 20% stenosis of the proximal left internal carotid artery by NASCET criteria. 6. No abnormalities identified in the anterior intracranial circulation. 7. No evidence of stenosis involving the right carotid artery. Urgent finding reported to TUAN Malone at 01/10/2018 11:23 PM CDT This exam was performed according to our departmental dose-optimization program, which includes automated exposure control, adjustment of the mA and/or kV according to patient size and/or use of iterative reconstruction technique. 2010 [employer]- All Rights Reserved Head MRI 01/10/18 00:00 IMPRESSION: Diffusion-weighted images are positive for nonhemorrhagic acute infarct in the left PICA distribution. Abnormal signal in the left vertebral artery on T2 weighted images. Findings are worrisome for dissection. This report was discussed with the patient's hospitalist physician as above. EVIDENCE OF ACUTE STROKE: Yes Neck CTA 01/10/18 00:00 IMPRESSION: 1. There is no flow identified throughout the majority of the left cervical vertebral artery with short segment minimal reconstitution of flow in the V2 portion of the left cervical vertebral artery at the level of the C3 and C4 vertebral bodies. These findings could be seen with vertebral artery dissection or occlusion. 2. The left intracranial (V4) segment of the left vertebral artery only fills at its most distal aspect likely retrograde. There is also no flow identified in the left PICA. 3. The right vertebral artery is likely nondominant and predominant supplies the right PICA with minimal flow provided to the basilar artery. 4. The basilar artery is likely supplied predominantly by the right posterior communicating artery/anterior circulation. 5. Approximately 20% stenosis of the proximal left internal carotid artery by NASCET criteria. 6. No abnormalities identified in the anterior intracranial circulation. 7. No evidence of stenosis involving the right carotid artery. Urgent finding reported to TUAN Malone at 01/10/2018 11:23 PM CDT This exam was performed according to our departmental dose-optimization program, which includes automated exposure control, adjustment of the mA and/or kV according to patient size and/or use of iterative reconstruction technique. 2010 [employer]- All Rights Reserved Plan Discharge Plan: Transfer to [facility]. Time Spent: Greater than 30 Minutes
[2018-01-11] MEDS: HYDROCHLOROTHIAZIDE 25 MG TABLET PO SCH (10:00)
[2018-01-11 10:16] LABS: ABSOLUTE EOSINOPHILS # (AUTO) 0.2 10^3/uL (0.0-0.6); ABSOLUTE LYMPHOCYTES (AUTO) 1.8 10^3/uL (0.5-4.7); ABSOLUTE MONOCYTES (AUTO) 0.4 10^3/uL (0.1-1.4); ABSOLUTE NEUT (AUTO) 6.5 10^3/uL (1.7-8.2); BASOPHILS % (AUTO) 0.4 % (0-2); EOSINOPHILS % (AUTO) 2.2 % (0-6); HEMATOCRIT 37.6 % (36.0-47.0); HEMOGLOBIN 12.8 g/dL (12.0-15.5); LYMPHOCYTES % (AUTO) 19.7 % (13-45); MEAN CORPUSCULAR HEMOGLOBIN 30.5 pg (27.0-33.4); MEAN CORPUSCULAR HGB CONC 34.1 g/dL (32.0-36.0); MEAN CORPUSCULAR VOLUME 89 fl (80-97); MONOCYTES % (AUTO) 4.2 % (3-13); PLATELET COUNT 167 10^3/uL (150-450); RED BLOOD COUNT 4.21 10^6/uL (3.72-5.28); RED CELL DISTRIBUTION WIDTH 14.3 % (11.5-14.0); SEGMENTED NEUTROPHILS % (AUTO) 73.5 % (42-78); TOTAL CELLS COUNTED % (AUTO) 100 %; WHITE BLOOD COUNT 8.9 10^3/uL (4.0-10.5)
[2018-01-11 10:24] LABS: INTERNATIONAL RATION (INR) 0.88; PROTHROMBIN TIME 12.4 SEC (11.4-15.4)
[2018-01-11 10:25] LABS: PARTIAL THROMBOPLASTIN TIME 32.7 SEC (23.5-35.8)
[2018-01-11] MEDS: ASPIRIN 81 MG TABLET, ENT COATED PO SCH (10:32)
[2018-01-11] MEDS: CETIRIZINE 10 MG TABLET PO SCH (10:32)
[2018-01-11] MEDS: POTASSIUM CHLORIDE 10 MEQ CAPSULE.ER PO SCH (10:32)
[2018-01-11] MEDS: RISPERIDONE 1 MG TABLET PO SCH (10:32)
--- NOTE | 2018-01-11 10:38 | RADIOLOGY REPORT (SQ) ---
EXAM DESCRIPTION: PICC INSERTION; U/S GUIDE FOR VASCULAR ACCESS; FLUORO/CV PLACEMENT COMPLETED DATE/TIME: 01/11/2018 10:06 am REASON FOR STUDY: no acess, heparin drip, pending transfer to [facility]; IV ACCESS COMPARISON: None. FLUOROSCOPY TIME: 32 seconds 1 images saved to PACS. TECHNIQUE: Fluoroscopic and ultrasound guided PICC placement. LIMITATIONS: None. PROCEDURE: After written consent and assessment were obtained, the patient was brought into the fluo roscopy room and place supine on the table. Ultrasound evaluation of potential access sites were perf ormed. After successfully identifying a patent left basilic vein, the left arm was prepped and draped in a sterile fashion along with the ultrasound probe. The entry site was anesthetized with 1% lidoca ine. A 21 gauge 7 cm needle was advanced through the skin and into the basilic vein under live ultras ound guidance. An ultrasound image was saved to PACS confirming access site. A .018 guide wire was then inserted through the needle and into the venous system. The needle was the removed and an 11 jennifer de scalpel was used to make a 1cm skin incision. A 5 fr peel-away sheath was advanced over the wire and into the venous system. A measurement was then made using the existing wire and live fluoroscopic guidance. The wire was then removed and the trimmed. The PICC was advanced through the peel-away she ath and into the venous system. The peel-away sheath was removed and the catheter was adhered to the patients arm with a stat lock. The catheter was then aspirated and flushed and a sterile bandage was placed over the access site. A fluoroscopic spot image was saved to PACS confirming the catheter tip within the superior vena cava. IMPRESSION: SUCCESSFUL PLACEMENT OF A 5 FR DUAL LUMEN 40 CM PICC IN THE LEFT BASILIC VEIN. COMMENT: Patient medication list reviewed: Yes- Quality ID# 130:Eligible professional attests to doc umenting in the medical record they obtained, updated, or reviewed the patient's current medications. . Quality ID 145: Final reports for procedures using fluoroscopy that document radiation exposure stephan yolette, or exposure time and number of fluorographic images (if radiation exposure indices are not avail able) Quality ID #76: The patient was prepped and draped using maximum sterile barrier technique including cap, mask, sterile gown, sterile gloves, a large sterile sheet, hand hygiene, and 2% Chlorhexidine fo r cutaneous antisepsis. When ultrasound is used, sterile ultrasound techniques are followed requiring sterile gel and sterile probes. TECHNICAL DOCUMENTATION: JOB ID: [id number] [employer]- All Rights Reserved rev-10/07 Reading location - IP/workstation name: [email or web address]
[2018-01-11] MEDS ORDERED: HEPARIN SOD (PORCINE) 1,000 UNIT/ML 10 ML VIAL IV PRN (11:38)
[2018-01-11 16:07] LABS: APPEARANCE,URINE CLEAR; BILIRUBIN,URINE NEGATIVE (NEGATIVE); COLOR,URINE STRAW; GLUCOSE, URINE NEGATIVE (NEGATIVE); KETONES,URINE NEGATIVE (NEGATIVE); LEUKOCYTE ESTERASE,URINE MODERATE (NEGATIVE); NITRITE,URINE NEGATIVE (NEGATIVE); PROTEIN,URINE NEGATIVE (NEGATIVE); URINE SPECIFIC GRAVITY 1.012; UROBILINOGEN,URINE NEGATIVE mg/dL (<2.0)
[2018-01-11 20:21] VITALS: BP 137/61
[2018-01-15] MEDS ORDERED: ERGOCALCIFEROL (VITAMIN D2) 50000 UNIT (1.25 MG) CAPSULE PO SCH (10:00)
== END 2018-01-11 21:09 | disposition short-term general hospital (02) | DRG 64 ==
LOC: ER 23:10 → EH 01-09 02:15 → 3W 01-09 04:25 → OBSVTOIN 01-10 14:14
PROVIDERS: ADMIT Internal Medicine; ATTEND Internal Medicine
PROC: 02HV33Z Insertion of Infusion Device into Superior Vena Cava, Percutaneous Approach (ICD-10-PCS; principal; 2018-01-11)
PROC: B518YZA Fluoroscopy of Superior Vena Cava using Other Contrast, Guidance (ICD-10-PCS; 2018-01-11)
PROC: B548ZZA Ultrasonography of Superior Vena Cava, Guidance (ICD-10-PCS; 2018-01-11)
DX: I63.8 Other cerebral infarction (principal); G93.49 Other encephalopathy; R13.10 Dysphagia, unspecified; F20.9 Schizophrenia, unspecified; I10 Essential (primary) hypertension; E78.5 Hyperlipidemia, unspecified; R73.9 Hyperglycemia, unspecified; F17.210 Nicotine dependence, cigarettes, uncomplicated; E66.01 Morbid (severe) obesity due to excess calories; Z79.899 Other long term (current) drug therapy; Z68.39 Body mass index [BMI] 39.0-39.9, adult
CPT/HCPCS: 36415; 36569; 70450; 70496; 70498; 70551; 71045; 76937; 77001; 80053; 80061; 80307; 81001; 82272; 83036; 83735; 84439; 84443; 84481; 84484; 85025; 85610; 85730; 93005; 93010; 93880; 99285; G0378; G8996-GN; G8997-GN; G8998-GN; J1642; J1644; J3480; J3490; S0119

== ENCOUNTER 2019-09-26 17:42 | Emergency (ER) | payer MEDICARE ==
--- NOTE | 2019-09-26 18:17 | ER Document Report ---
ED General - General Stated Complaint: DIZZYNESS Time Seen by Provider: 09/26/19 17:46 Primary Care Provider: NAYA NOEL FNP-C [Primary Care Provider] - Follow up as needed Mode of Arrival: Medic Information source: Patient, Emergency Med Personnel Notes: 64-year-old female arrives by EMS with increased tremors and slurred speech. Patient has been on Bactrim and Flagyl for the last 3 days for MRSA that was positive in her nose. She also had a swab to her vaginal area and she believes she may have MRSA there as well. Patient also has left lower extremity weakness according to provider at [facility]. Patient had a CVA 2 years ago and was evaluated by a neurosurgeon 6 months ago and advised to get a CT of head but patient could not afford this and therefore it was not done. Patient is not on Bactroban nasal and has been diagnosed with BV in June of this year. She has a history also of depression SD and IBS Patient reports she has had 40 years of tremor and was on medications for this until she had her SD 6 years ago. She also had a CVA 4 years ago with right- sided weakness and paresthesias. She uses a cane four-point type in order to ambulate. She has been under stress recently because her daughter had amputation of her arm and foot from Buerger's disease at [facility]. Patient also reports she has perivulvar and perirectal rash for many months and thinks she has MRSA in this area as well. She took care of her who is disabled for 6 years and he had MRSA. She was diagnosed with rosacea for many years for her erythema of her nose and face. TRAVEL OUTSIDE OF THE [place] IN LAST 30 DAYS: No - HPI Onset: This afternoon Onset/Duration: Sudden, Persistent, Worse Quality of pain: No pain Severity: Mild Associated symptoms: Weakness Similar symptoms previously: No Recently seen / treated by doctor: No - Related Data Allergies/Adverse Reactions: codeine [Codeine] Allergy (Unknown, Verified 01/09/18 10:05) amitriptyline [From Elavil] Allergy (Verified 01/09/18 10:04) Past Medical History - General Information source: Patient - Social History Smoking Status: Current Every Day Smoker Cigarette use (# per day): Yes Chew tobacco use (# tins/day): No Smoking Education Provided: Yes Frequency of alcohol use: Occasional Drug Abuse: None Lives with: Family Family History: Other - Unknown to patient - Past Medical History Cardiac Medical History: Reports: Hx Hypercholesterolemia, Hx Hypertension Renal/ Medical History: Denies: Hx Peritoneal Dialysis GI Medical History: Reports: Hx Irritable Bowel Psychiatric Medical History: Reports: Hx Depression, Hx Schizoaffective Disorder Past Surgical History: Reports: Hx Cardiac Catheterization - stent, Hx Cholecystectomy, Hx Hysterectomy Review of Systems - Review of Systems Constitutional: See HPI, Weakness EENT: See HPI, Nose pain - With MRSA of nose after she was evaluated by her personal doctor 1 week ago with a ultraviolet lamp, Other - Swallowing difficulties and yeast on tongue Cardiovascular: See HPI, Dizziness Respiratory: No symptoms reported Gastrointestinal: No symptoms reported Genitourinary: No symptoms reported Female Genitourinary: No symptoms reported Musculoskeletal: No symptoms reported Skin: See HPI, Rash - @ perivulva and perineum and perianal skin Hematologic/Lymphatic: No symptoms reported Neurological/Psychological: No symptoms reported Physical Exam - Vital signs Vitals: Temp 98.9 F 09/26/19 17:43 - General General appearance: Alert - HEENT Head: Atraumatic Eyes: Normal Conjunctiva: Injected Cornea: Normal Extraocular movements intact: Yes Eyelashes: Normal Pupils: PERRL Mucous membranes: Other - tinea tongue Pharynx: Normal Neck: Normal - Extremities General upper extremity: Other - paresthesias of right side per pt General lower extremity: Other - paresthesias of right side per pt - Neurological Neuro grossly intact: Yes Cognition: Normal Orientation: AAOx4 Cb Coma Scale Eye Opening: Spontaneous Rapelje Coma Scale Verbal: Oriented Cb Coma Scale Motor: Obeys Commands Cb Coma Scale Total: 15 Speech: Normal Cranial nerves: Normal Cerebellar coordination: Gait ataxia Motor strength normal: LUE, RUE, LLE, RLE Additional motor exam normals: Equal baker helper - 5/5 nakul hands, Involuntary movements Sensory: Normal - Psychological Associated symptoms: Anxious - Skin Skin Temperature: Warm Skin Moisture: Dry Skin Color: Other - @ perivulva and perineum and perianal skin erythema and tinea type lesion contiguous Course - Vital Signs Vital signs: Temp Pulse Resp BP Pulse Ox 98.9 F 75 21 H 162/78 H 96 09/26/19 17:45 09/26/19 20:41 09/26/19 21:00 09/26/19 20:41 09/26/19 21:00 - Laboratory Result Diagrams: 09/26/19 18:10 09/26/19 18:10 Laboratory results interpreted by me: 09/26/19 09/26/19 09/26/19 18:10 18:10 18:10 WBC 13.6 H RDW 17.7 H Absolute Neuts (auto) 10.2 H Est GFR (MDRD) Non-Af 54 L Ur Leukocyte Esterase TRACE H - Diagnostic Test Radiology reviewed: Reports reviewed Radiology results interpreted by me: 09/26/19 19:24 ct head neg Critical Care Note - Critical Care Note Total time excluding time spent on procedures (mins): 90 Discharge - Discharge Clinical Impression: Weakness, Morbid obesity, Tremors of nervous system, Vulvar candidiasis, Oral candidiasis, Anxiety about health, MRSA (methicillin resistant Staphylococcus aureus) infection Condition: Fair Disposition: HOME, SELF-CARE Additional Instructions: Follow-up with personal doctor return to ER as needed and take medicines as directed; apply ointments to your pudendal skin as directed.. Daily or better twice a day Prescriptions: Mupirocin [Bactroban 2% Ointment 22 gm] 1 applic NASL HSP PRN 7 Days #1 tube PRN Reason: Fluconazole [Diflucan 100 Mg Tablet] 100 mg PO DAILY #2 tablet Referrals: NAYA NOEL FNP-C [Primary Care Provider] - Follow up as needed
[2019-09-26 18:26] LABS: ABSOLUTE BASOPHILS # (AUTO) 0.1 10^3/uL (0.0-0.2); ABSOLUTE EOSINOPHILS # (AUTO) 0.3 10^3/uL (0.0-0.6); ABSOLUTE LYMPHOCYTES (AUTO) 2.2 10^3/uL (0.5-4.7); ABSOLUTE MONOCYTES (AUTO) 0.8 10^3/uL (0.1-1.4); ABSOLUTE NEUT (AUTO) 10.2 10^3/uL (1.7-8.2); BASOPHILS % (AUTO) 0.7 % (0-2); HEMATOCRIT 39.2 % (36.0-47.0); HEMOGLOBIN 13.2 g/dL (12.0-15.5); LYMPHOCYTES % (AUTO) 16.2 % (13-45); MEAN CORPUSCULAR HEMOGLOBIN 27.4 pg (27.0-33.4); MEAN CORPUSCULAR HGB CONC 33.6 g/dL (32.0-36.0); MEAN CORPUSCULAR VOLUME 82 fl (80-97); MONOCYTES % (AUTO) 5.7 % (3-13); PLATELET COUNT 232 10^3/uL (150-450); RED CELL DISTRIBUTION WIDTH 17.7 % (11.5-14.0); SEGMENTED NEUTROPHILS % (AUTO) 75.4 % (42-78); TOTAL CELLS COUNTED % (AUTO) 100 %; WHITE BLOOD COUNT 13.6 10^3/uL (4.0-10.5)
[2019-09-26 18:31] LABS: APPEARANCE,URINE SLIGHTLY-CLOUDY; BILIRUBIN,URINE NEGATIVE (NEGATIVE); COLOR,URINE YELLOW; GLUCOSE, URINE NEGATIVE (NEGATIVE); KETONES,URINE NEGATIVE (NEGATIVE); LEUKOCYTE ESTERASE,URINE TRACE (NEGATIVE); NITRITE,URINE NEGATIVE (NEGATIVE); PROTEIN,URINE NEGATIVE (NEGATIVE); URINE SPECIFIC GRAVITY 1.023; UROBILINOGEN,URINE NEGATIVE mg/dL (<2.0)
--- NOTE | 2019-09-26 18:44 | RADIOLOGY REPORT (SQ) ---
EXAM DESCRIPTION: CT HEAD WITHOUT IMAGES COMPLETED DATE/TIME: 09/26/2019 6:33 pm REASON FOR STUDY: slurred speech inc tremors COMPARISON: None. TECHNIQUE: Axial images acquired through the brain without intravenous contrast. Images reviewed wi th bone, brain and subdural windows. Additional sagittal and coronal reconstructions were generated. Images stored on PACS. All CT scanners at this facility use dose modulation, iterative reconstruction, and/or weight based d osing when appropriate to reduce radiation dose to as low as reasonably achievable (ALARA). [facility]: Dose Right [facility]: CareDose [facility]: Dose Right [facility]: Teradose 4D [facility]: Smart [employer] RADIATION DOSE: CT Rad equipment meets quality standard of care and radiation dose reduction techniq ues were employed. CTDIvol: 53.2 mGy. DLP: 991 mGy-cm. mGy. LIMITATIONS: None. FINDINGS: VENTRICLES: Normal size and contour. CEREBRUM: No masses. No hemorrhage. No midline shift. No evidence for acute infarction. Normal gra y/white matter differentiation. No areas of low density in the white matter. CEREBELLUM: No masses. No hemorrhage. No alteration of density. No evidence for acute infarction. EXTRAAXIAL SPACES: No fluid collections. No masses. ORBITS AND GLOBE: No intra- or extraconal masses. Normal contour of globe without masses. CALVARIUM: No fracture. PARANASAL SINUSES: No fluid or mucosal thickening. SOFT TISSUES: No mass or hematoma. OTHER: No other significant finding. IMPRESSION: NORMAL BRAIN CT WITHOUT CONTRAST. EVIDENCE OF ACUTE STROKE: NO. COMMENT: Quality ID # [id number]: Final reports with documentation of one or more dose reduction techniques (e.g., Automated exposure control, adjustment of the mA and/or kV according to patient size, use of iterative reconstruction technique) TECHNICAL DOCUMENTATION: JOB ID: [id number] 2010 [employer]- All Rights Reserved Reading location - IP/workstation name: [email or web address]
[2019-09-26] MEDS ORDERED: CLOTRIMAZOLE/BETAMETHASONE DIP CREAM 15 GM TOP ONE (18:45)
[2019-09-26] MEDS ORDERED: MUPIROCIN 2% OINTMENT 22 GM TP ONE (18:46)
[2019-09-26] MEDS ORDERED: FLUCONAZOLE 100 MG TABLET PO ONE (18:46)
[2019-09-26 18:51] LABS: ALBUMIN 4.6 g/dL (3.5-5.0); ALKALINE PHOSPHATASE 96 U/L (38-126); ANION GAP 10 (5-19); ASPARTATE AMINO TRANSFERASE 25 U/L (14-36); BILIRUBIN,TOTAL 0.3 mg/dL (0.2-1.3); BLOOD UREA NITROGEN 20 mg/dL (7-20); CALCIUM 9.1 mg/dL (8.4-10.2); CARBON DIOXIDE 29 mmol/L (22-30); CHLORIDE 99 mmol/L (98-107); CREATINE KINASE 74 U/L (30-135); GLUCOSE 101 mg/dL (75-110); POTASSIUM 4.6 mmol/L (3.6-5.0)
[2019-09-26 19:00] LABS: CREATINE KINASE MB 1.18 ng/mL (<4.55)
[2019-09-26 19:03] LABS: TROPONIN I < 0.012 ng/mL
[2019-09-26] MEDS ORDERED: LORAZEPAM INJ 2 MG/1 ML VIAL IV ONE (19:18)
[2019-09-26] MEDS ORDERED: VANCOMYCIN HCL INJ 1000 MG VIAL IV ONE (19:21)
[2019-09-26] MEDS ORDERED: PIPERACILLIN/TAZOBACTAM 3.375 GM VIAL IV ONE (19:23)
--- NOTE | 2019-09-26 19:55 | EKG REPORT ---
SEVERITY:- ABNORMAL ECG - SINUS RHYTHM BORDERLINE LEFT AXIS DEVIATION ANTERIOR INFARCT, OLD : Confirmed by: Alvarado Delong MD 26-Sep-2019 19:54:01
[2019-09-26 23:04] VITALS: BP 113/57
== END 2019-09-26 23:15 | disposition home or self-care (01) ==
LOC: ER 17:42
DX: B37.0 Candidal stomatitis (principal); B37.3 Candidiasis of vulva and vagina; F41.9 Anxiety disorder, unspecified; R25.1 Tremor, unspecified; R53.1 Weakness; R47.81 Slurred speech; A49.02 Methicillin resistant Staphylococcus aureus infection, unspecified site; R13.10 Dysphagia, unspecified; R42 Dizziness and giddiness; E66.01 Morbid (severe) obesity due to excess calories; R26.0 Ataxic gait; L71.9 Rosacea, unspecified; I10 Essential (primary) hypertension; F17.210 Nicotine dependence, cigarettes, uncomplicated; I25.2 Old myocardial infarction; Z86.73 Personal history of transient ischemic attack (TIA), and cerebral infarction without residual deficits; Z88.6 Allergy status to analgesic agent; Z88.5 Allergy status to narcotic agent
CPT/HCPCS: 93005; 99285; 96375; 96365; 96366; 96368; 36415; 87040; 82553; 82550; 85025; 80053; 81001; 84484; 70450; 93010; J2060; A9270 ×3; J3370; J2543; J3490

== ENCOUNTER 2020-01-09 16:20 | Emergency (ER) | payer MEDICARE ==
--- NOTE | 2020-01-09 18:30 | ER Document Report ---
ED Medical Screen (RME) - General Stated Complaint: ULCER Time Seen by Provider: 01/09/20 18:22 Primary Care Provider: NAYA NOEL FNP-C [Primary Care Provider] - Follow up as needed Mode of Arrival: Wheelchair Information source: Patient Notes: HPI; 64-year-old female presents to the emergency room complaining of a worsening open sore on her buttock that she has had for over 2 weeks. Patient states she now has multiple ulcerations in her vaginal area. Questionable history of MRSA. States was seen here 2 weeks ago but has not followed up with her primary care doctor. States her sister has been trying to come every couple of days and clean the wound but it is not gotten any better. She denies any fevers. PE: Alert and oriented x3. Mild distress noted. Lungs: Clear to auscultation without rales, rhonchi, wheezes. Heart: Regular rate rhythm without murmurs, rubs, gallops. Unable to assess wounds in triage. I have greeted and performed a rapid initial assessment of this patient. A comprehensive ED assessment and evaluation of the patient, analysis of test results and completion of the medical decision making process will be conducted by additional ED providers. I have specifically instructed the patient or family members with the patient to immediately return to any nursing staff should anything change in the patient's condition or with their chief complaint. TRAVEL OUTSIDE OF THE [place] IN LAST 30 DAYS: No - Related Data Allergies/Adverse Reactions: codeine [Codeine] Allergy (Unknown, Verified 01/09/18 10:05) amitriptyline [From Elavil] Allergy (Verified 01/09/18 10:04) Past Medical History - Past Medical History Cardiac Medical History: Reports: Hx Heart Attack, Hx Hypercholesterolemia, Hx Hypertension Endocrine Medical History: Reports: Hx Diabetes Mellitus Type 2 Renal/ Medical History: Denies: Hx Peritoneal Dialysis GI Medical History: Reports: Hx Irritable Bowel Psychiatric Medical History: Reports: Hx Depression, Hx Schizoaffective Disorder Past Surgical History: Reports: Hx Cardiac Catheterization - stent, Hx Cholecystectomy, Hx Hysterectomy Physical Exam - Vital signs Vitals: Temp Pulse Resp BP Pulse Ox 99.0 F 86 17 132/49 H 98 01/09/20 16:49 01/09/20 16:49 01/09/20 16:49 01/09/20 16:49 01/09/20 16:49 Course - Vital Signs Vital signs: Temp Pulse Resp BP Pulse Ox 99.0 F 86 17 132/49 H 98 01/09/20 16:49 01/09/20 16:49 01/09/20 16:49 01/09/20 16:49 01/09/20 16:49 Doctor's Discharge - Discharge Referrals: NAYA NOEL FNP-C [Primary Care Provider] - Follow up as needed
[2020-01-09 18:59] LABS: ABSOLUTE BASOPHILS # (AUTO) 0.1 10^3/uL (0.0-0.2); ABSOLUTE EOSINOPHILS # (AUTO) 0.1 10^3/uL (0.0-0.6); ABSOLUTE LYMPHOCYTES (AUTO) 1.5 10^3/uL (0.5-4.7); ABSOLUTE MONOCYTES (AUTO) 0.7 10^3/uL (0.1-1.4); ABSOLUTE NEUT (AUTO) 9.4 10^3/uL (1.7-8.2); BASOPHILS % (AUTO) 0.7 % (0-2); HEMATOCRIT 29.9 % (36.0-47.0); HEMOGLOBIN 9.8 g/dL (12.0-15.5); LYMPHOCYTES % (AUTO) 12.3 % (13-45); MEAN CORPUSCULAR HEMOGLOBIN 27.4 pg (27.0-33.4); MEAN CORPUSCULAR HGB CONC 32.8 g/dL (32.0-36.0); MEAN CORPUSCULAR VOLUME 84 fl (80-97); MONOCYTES % (AUTO) 6.3 % (3-13); PLATELET COUNT 308 10^3/uL (150-450); RED BLOOD COUNT 3.58 10^6/uL (3.72-5.28); RED CELL DISTRIBUTION WIDTH 16.1 % (11.5-14.0); SEGMENTED NEUTROPHILS % (AUTO) 79.7 % (42-78); TOTAL CELLS COUNTED % (AUTO) 100 %; WHITE BLOOD COUNT 11.9 10^3/uL (4.0-10.5)
[2020-01-09 19:19] LABS: ALBUMIN 3.9 g/dL (3.5-5.0); ALKALINE PHOSPHATASE 90 U/L (38-126); ANION GAP 9 (5-19); ASPARTATE AMINO TRANSFERASE 29 U/L (14-36); BILIRUBIN,DIRECT 0.1 mg/dL (0.0-0.4); BLOOD UREA NITROGEN 17 mg/dL (7-20); CALCIUM 8.8 mg/dL (8.4-10.2); CARBON DIOXIDE 31 mmol/L (22-30); CHLORIDE 99 mmol/L (98-107); GLUCOSE 91 mg/dL (75-110); POTASSIUM 3.5 mmol/L (3.6-5.0); TOTAL PROTEIN 7.1 g/dL (6.3-8.2)
[2020-01-09] MEDS ORDERED: ONDANSETRON HCL INJ/PF 4 MG/2 ML SDV IV ONE (21:02)
[2020-01-09] MEDS ORDERED: MORPHINE SULFATE 10 MG/ML INJ IV ONE (21:02)
--- NOTE | 2020-01-09 21:17 | ER Document Report ---
ED General - General Mode of Arrival: Wheelchair TRAVEL OUTSIDE OF THE [place] IN LAST 30 DAYS: No - Related Data Home Medications: Medication list reviewed at bedside <RIA MENA - Last Filed: 01/10/20 02:58> <MAL YOUNG - Last Filed: 01/10/20 15:23> - General Chief Complaint: Wound Infection Stated Complaint: ULCER Time Seen by Provider: 01/09/20 18:22 Primary Care Provider: NAYA NOEL FNP-C [Primary Care Provider] - Follow up as needed - HPI Notes: Patient is a 64-year-old female who presents to the emergency department for evaluation of sores on her buttock and vaginal area. She states she was actually seen here a few weeks ago. She was seen for anxiety versus heart attack, but the provider evaluated the sore in her perineal area, told her it was "MRSA" and put her on some topical creams. The patient states that she feels like it is getting worse. She states she may have more sores, but she is unsure. She states she really cannot see the area, her sister has been primarily taking care of them. She was just recently diagnosed as diabetic, is on glipizide. She denies any fevers or chills. No nausea or vomiting. She does have some diminished appetite. She states her pain is worsened by urinating, as the urine runs over it, and it feels "like it is boiling." (RIA MENA) - Related Data Allergies/Adverse Reactions: codeine [Codeine] Allergy (Unknown, Verified 01/09/18 10:05) amitriptyline [From Elavil] Allergy (Verified 01/09/18 10:04) Past Medical History - General Information source: Patient - Social History Smoking Status: Current Every Day Smoker Frequency of alcohol use: None Drug Abuse: None Family History: Other - Unknown to patient - Past Medical History Cardiac Medical History: Reports: Hx Coronary Artery Disease, Hx Heart Attack, Hx Hypercholesterolemia, Hx Hypertension Neurological Medical History: Reports: Hx Cerebrovascular Accident Endocrine Medical History: Reports: Hx Diabetes Mellitus Type 2 Renal/ Medical History: Denies: Hx Peritoneal Dialysis GI Medical History: Reports: Hx Irritable Bowel Psychiatric Medical History: Reports: Hx Depression, Hx Schizoaffective Disorder Past Surgical History: Reports: Hx Cardiac Catheterization - stent, Hx Cholecyst ectomy, Hx Hysterectomy <DESIREE MENACORY Pena - Last Filed: 01/10/20 02:58> Review of Systems - Review of Systems Constitutional: Weakness EENT: See HPI Cardiovascular: See HPI Respiratory: See HPI Gastrointestinal: See HPI Genitourinary: See HPI Female Genitourinary: No symptoms reported Musculoskeletal: No symptoms reported Skin: See HPI Neurological/Psychological: No symptoms reported <KELECHIAZALIARIA - Last Filed: 01/10/20 02:58> Physical Exam <KELECHIAZALIARIA - Last Filed: 01/10/20 02:58> - Vital signs Vitals: Temp Pulse Resp BP Pulse Ox 99.0 F 86 17 132/49 H 98 01/09/20 16:49 01/09/20 16:49 01/09/20 16:49 01/09/20 16:49 01/09/20 16:49 - Notes Notes: This is an obese 64-year-old female who appears her stated age in a mild amount of distress. I did sort of movement makes her yell out in pain. Vital signs reviewed, please refer to chart. Head is normocephalic, atraumatic. Pupils equal round, reactive to light. Neck is supple without meningismus. Heart is regular rate and rhythm. Lungs are clear to auscultation bilaterally. Abdomen is obese,, nontender, normoactive bowel sounds throughout. Extremities without cyanosis, clubbing. Posterior calves are nontender. Peripheral pulses are equa l. In the perineal area patient has an ulceration on the left aspect of the perineum, radiating into the buttock, with ulceration eroded into the subcutaneous fat. There is surrounding erythema. The patient also has well demarcated erythema in the perirectal region, overlying the perineum, and into bilateral labia majora. This seems consistent with Alisa. She is markedly tender if any area in this region is even lightly touched. I am unable to appreciate any subcutaneous emphysema, but again the patient's pain limits the examination. (RIA MENA) Course - Laboratory Result Diagrams: 01/09/20 18:46 01/09/20 18:46 - Diagnostic Test Radiology reviewed: Image reviewed, Reports reviewed <RIA MENA - Last Filed: 08/20/20 02:58> - Laboratory Result Diagrams: 01/09/20 18:46 01/09/20 18:46 <MAL YOUNG - Last Filed: 01/10/20 15:23> - Re-evaluation Re-evalutation: 01/09/20 21:17 Patient presents to the emergency department for evaluation. She had laboratory investigations and IV placement as ordered. Patient has a significant amount of pain in that area. Certainly it could be candidal infection with secondary erosion and ulceration, but given her status as a diabetic and the significant amount of pain she is experiencing, I am concerned about the possibility of a more significant soft tissue infection. CT scan of the pelvis with IV contrast is ordered. Patient given pain medication. INR ordered as she is currently on Coumadin as well. She is currently stable, we will continue to monitor. 01/10/20 02:50 Patient's laboratory investigations were largely unremarkable for any acute process. Her CT scan does not show any signs of extensive infection, soft tissue gas, or Judith's gangrene. I suspect this is all candidal with resulting ulceration. She needs wound care. She was started on Diflucan, had an order for nystatin and wound care to that area per nursing. Patient was also notified of the renal mass noted in the need for follow-up in regards to this. She voiced understanding. She was advised to quit smoking, voiced understanding to this as well. Otherwise, patient's issues are ongoing and chronic. She needs better outpatient wound care, good glucose control, and treatment with nystatin and Diflucan. We will discharge her with close follow-up with primary care. She will need repeat imaging of her renal abnormality as well. (RIA MENA) - Vital Signs Vital signs: Temp Pulse Resp BP Pulse Ox 97.8 F 62 16 118/60 99 01/10/20 15:18 01/10/20 15:18 01/10/20 15:18 01/10/20 15:18 01/10/20 15:18 - Laboratory Laboratory results interpreted by me: 01/09/20 01/09/20 01/09/20 18:46 18:46 21:30 WBC 11.9 H RBC 3.58 L Hgb 9.8 L Hct 29.9 L RDW 16.1 H Lymph % (Auto) 12.3 L Absolute Neuts (auto) 9.4 H Seg Neutrophils % 79.7 H PT 37.2 H Potassium 3.5 L Carbon Dioxide 31 H Urine Protein Urine Urobilinogen Ur Leukocyte Esterase 01/10/20 10:20 WBC RBC Hgb Hct RDW Lymph % (Auto) Absolute Neuts (auto) Seg Neutrophils % PT Potassium Carbon Dioxide Urine Protein 30 H Urine Urobilinogen 2.0 H Ur Leukocyte Esterase SMALL H - Diagnostic Test Radiology results interpreted by me: 01/10/20 02:[address] 01/09/20 21:00 IMPRESSION: 1. Indeterminate 6.5 cm exophytic lesion off the lower pole of left kidney may represent a hyperdense renal cyst but malignant etiology is not excluded. Would recommend follow-up renal ultrasound or renal mass protocol CT with and without contrast when feasible as above. 2. No evidence of a definite cellulitis, abscess or Judith's gangrene in the pelvis. (RIA MENA) Discharge <RIA MENA - Last Filed: 01/10/20 02:58> <MAL YOUNG - Last Filed: 01/10/20 15:23> - Discharge Clinical Impression: Morbid obesity, Intertriginous candidiasis, Left renal mass, Left buttock ul ceration Condition: Stable Disposition: HOME, SELF-CARE Additional Instructions: It seems that your wound is likely caused by yeast in that area. Keep the area clean and dry. Use topical nystatin cream twice daily, take Diflucan as prescribed. You need to be referred on to wound care for further evaluation of this wound, as well as appropriate treatment. There was also a mass noted on your left kidney on CT scan. You should have another CT scan, dedicated to your kidneys, in 1 to 2 weeks for further evaluation of this finding. If you develop worsening or new concerning symptoms of any sort, please return immediately to the emergency department for reevaluation. Prescriptions: Fluconazole [Diflucan] 100 mg PO DAILY #6 tablet Nystatin [Mycostatin Cream 15 gm] 1 applic TP BID #15 gm Referrals: NAYA NOEL FNP-C [Primary Care Provider] - Follow up as needed
[2020-01-09 21:53] LABS: INTERNATIONAL RATION (INR) 3.81; PROTHROMBIN TIME 37.2 SEC (11.4-15.4)
--- NOTE | 2020-01-09 23:32 | RADIOLOGY REPORT (SQ) ---
CT pelvis with contrast on 01/09/2020 at 10:46 PM CLINICAL INDICATION: Infection, evaluate for abscess or gas in the perineum TECHNIQUE: Multiple axial images are obtained throughout the pelvis following the administration of IV contrast, 100 mL of Omnipaque 350contrast was administered intravenously without complication. This exam was performed according to our departmental dose-optimization program, which includes automated exposure control, adjustment of the mA and/or kV according to patient size and/or use of iterative reconstruction technique. Total DLP is 1537.98 mGy*cm. COMPARISON: None FINDINGS: Right renal cyst is partially imaged. There is a well-circumscribed 6.5 x 6.1 x 5.8 cm exophytic lesion off the lower pole of the left kidney that is indeterminate as this measures 35 Hounsfield units. Favor this to represent hyperdense renal cyst but would recommend follow-up renal ultrasound or renal mass protocol CT with and without contrast to better evaluate when feasible. This would need to wait at least a few days to allow this contrast to clear first. Vascular calcifications are noted. There is no pelvic adenopathy. The patient is status post hysterectomy. There is no free fluid in the pelvis. Pelvic portion of the GI tract including the appendix is unremarkable. No significant fat stranding is noted in the perineum to suggest a definite area of cellulitis. There is no fluid collection to suggest abscess and no air in the soft tissues to suggest Judith's gangrene. Degenerative changes are noted in the lower lumbar spine. No acute bony abnormality is noted. IMPRESSION: 1. Indeterminate 6.5 cm exophytic lesion off the lower pole of left kidney may represent a hyperdense renal cyst but malignant etiology is not excluded. Would recommend follow-up renal ultrasound or renal mass protocol CT with and without contrast when feasible as above. 2. No evidence of a definite cellulitis, abscess or Judith's gangrene in the pelvis.
[2020-01-10] MEDS ORDERED: FLUCONAZOLE 100 MG TABLET PO ONE (01:50)
[2020-01-10] MEDS ORDERED: NYSTATIN OINTMENT 15 GM TUBE TP ONE (01:51)
[2020-01-10] MEDS ORDERED: NYSTATIN CREAM 15 GM ONE (02:02)
[2020-01-10] MEDS ORDERED: NYSTATIN OINTMENT 15 GM TUBE ONE (02:11)
[2020-01-10 11:25] LABS: APPEARANCE,URINE SLIGHTLY-CLOUDY; BILIRUBIN,URINE NEGATIVE (NEGATIVE); COLOR,URINE YELLOW; GLUCOSE, URINE NEGATIVE (NEGATIVE); KETONES,URINE NEGATIVE (NEGATIVE); LEUKOCYTE ESTERASE,URINE SMALL (NEGATIVE); NITRITE,URINE NEGATIVE (NEGATIVE); PROTEIN,URINE 30 mg/dL (NEGATIVE)
[2020-01-10 11:33] LABS: URINE SPECIFIC GRAVITY > 1.060
[2020-01-10 15:19] VITALS: BP 118/60
== END 2020-01-10 15:40 | disposition home or self-care (01) ==
LOC: ER 16:20
DX: B37.2 Candidiasis of skin and nail (principal); E11.622 Type 2 diabetes mellitus with other skin ulcer; L98.412 Non-pressure chronic ulcer of buttock with fat layer exposed; N28.89 Other specified disorders of kidney and ureter; E66.01 Morbid (severe) obesity due to excess calories; R63.0 Anorexia; R53.1 Weakness; F17.200 Nicotine dependence, unspecified, uncomplicated; I25.10 Atherosclerotic heart disease of native coronary artery without angina pectoris; I10 Essential (primary) hypertension; I25.2 Old myocardial infarction; Z79.84 Long term (current) use of oral hypoglycemic drugs; Z88.6 Allergy status to analgesic agent; Z88.5 Allergy status to narcotic agent; Z88.8 Allergy status to other drugs, medicaments and biological substances
CPT/HCPCS: 99285; 96374; 96375; 36415; 87040; 83605; 85025; 85610; 80053; 81001; 72193; J2270; A9270 ×2; J2405; J3490

== ENCOUNTER 2020-02-27 13:43 | Emergency (ER) | payer MEDICARE ==
[2020-02-27] MEDS ORDERED: MORPHINE SULFATE 10 MG/ML INJ IV ONE ×2 (14:00→17:00)
[2020-02-27] MEDS ORDERED: ONDANSETRON HCL INJ/PF 4 MG/2 ML SDV IV ONE ×2 (14:00→16:45)
--- NOTE | 2020-02-27 14:03 | ER Document Report ---
ED Medical Screen (RME) - General Stated Complaint: PRESSURE ULCER ON BUTTOCKS Time Seen by Provider: 02/27/20 13:53 Primary Care Provider: NAYA NOEL FNP-C [Primary Care Provider] - Follow up as needed Notes: Patient is a 64-year-old white female with a history of diabetes who presents emergency department chief complaint of painful decubitus ulcer to her buttock began about 3 months ago. States area seems to be worsening. She sees [facility] as primary but has not had it evaluated thoroughly. States she is not seeing wound care. She reports the area seems to be spreading getting worse and is very painful. She is concerned that she might be getting septic. She states this is greatly limited her activities of daily living at home. She is not been able to shower for 3 months. Any other pain, complaints or concerns at this time. I have treated and performed a rapid initial assessment of this patient. A comprehensive ED assessment and evaluation of the patient, analysis of test results and completion of medical decision making process will be conducted by additional ED providers. PHYSICAL EXAMINATION: GENERAL: Well-appearing, well-nourished and in no acute distress. A&Ox4. Answers questions appropriately. Skin: Exam deferred until patient is in a private room in the emergency department, given current location in triage. TRAVEL OUTSIDE OF THE [place] IN LAST 30 DAYS: No - Related Data Allergies/Adverse Reactions: codeine [Codeine] Allergy (Unknown, Verified 01/09/18 10:05) amitriptyline [From Elavil] Allergy (Verified 01/09/18 10:04) flu shot Allergy (Severe, Uncoded 02/27/20 14:01) Past Medical History - Past Medical History Cardiac Medical History: Reports: Hx Coronary Artery Disease, Hx Heart Attack, Hx Hypercholesterolemia, Hx Hypertension Neurological Medical History: Reports: Hx Cerebrovascular Accident Endocrine Medical History: Reports: Hx Diabetes Mellitus Type 2 Renal/ Medical History: Denies: Hx Peritoneal Dialysis GI Medical History: Reports: Hx Irritable Bowel Psychiatric Medical History: Reports: Hx Depression, Hx Schizoaffective Disorder Past Surgical History: Reports: Hx Cardiac Catheterization - stent, Hx Cholecystectomy, Hx Hysterectomy Doctor's Discharge - Discharge Referrals: NAYA NOEL FNP-C [Primary Care Provider] - Follow up as needed
[2020-02-27 14:49] LABS: ABSOLUTE BASOPHILS # (AUTO) 0.1 10^3/uL (0.0-0.2); ABSOLUTE EOSINOPHILS # (AUTO) 0.1 10^3/uL (0.0-0.6); ABSOLUTE LYMPHOCYTES (AUTO) 1.4 10^3/uL (0.5-4.7); ABSOLUTE MONOCYTES (AUTO) 0.5 10^3/uL (0.1-1.4); BASOPHILS % (AUTO) 0.5 % (0-2); EOSINOPHILS % (AUTO) 0.8 % (0-6); HEMATOCRIT 38.1 % (36.0-47.0); HEMOGLOBIN 12.7 g/dL (12.0-15.5); LYMPHOCYTES % (AUTO) 12.2 % (13-45); MEAN CORPUSCULAR HGB CONC 33.3 g/dL (32.0-36.0); MEAN CORPUSCULAR VOLUME 81 fl (80-97); MONOCYTES % (AUTO) 4.8 % (3-13); PLATELET COUNT 250 10^3/uL (150-450); RED BLOOD COUNT 4.69 10^6/uL (3.72-5.28); RED CELL DISTRIBUTION WIDTH 15.9 % (11.5-14.0); SEGMENTED NEUTROPHILS % (AUTO) 81.7 % (42-78); TOTAL CELLS COUNTED % (AUTO) 100 %
[2020-02-27 15:09] LABS: ALBUMIN 4.2 g/dL (3.5-5.0); ALKALINE PHOSPHATASE 101 U/L (38-126); ANION GAP 10 (5-19); ASPARTATE AMINO TRANSFERASE 39 U/L (14-36); BILIRUBIN,DIRECT 0.3 mg/dL (0.0-0.4); BILIRUBIN,TOTAL 0.6 mg/dL (0.2-1.3); BLOOD UREA NITROGEN 13 mg/dL (7-20); CALCIUM 9.7 mg/dL (8.4-10.2); CARBON DIOXIDE 30 mmol/L (22-30); CHLORIDE 101 mmol/L (98-107); GLUCOSE 133 mg/dL (75-110); POTASSIUM 4.1 mmol/L (3.6-5.0); TOTAL PROTEIN 7.1 g/dL (6.3-8.2)
--- NOTE | 2020-02-27 18:10 | ER Document Report ---
ED General - General Chief Complaint: Wound Infection Stated Complaint: PRESSURE ULCER ON BUTTOCKS Time Seen by Provider: 02/27/20 13:53 Primary Care Provider: NAYA NOEL FNP-C [NO LOCAL MD] - Follow up as needed Mode of Arrival: Ambulatory Information source: Patient Notes: Patient is a 64-year-old female who comes in today with a left perineal decubitus ulcer. She was seen on 01/[address] Brown. She had full lab analysis as well as a CT scan which showed no evidence of Forniers gangrene. She was told to take her yeast medication and follow closely with her primary. Evidently she has not done that. It appears that she has not changed her smo denise habits. Patient comes in today concerns of being "septic". TRAVEL OUTSIDE OF THE [place] IN LAST 30 DAYS: No - Related Data Allergies/Adverse Reactions: codeine [Codeine] Allergy (Unknown, Verified 01/09/18 10:05) amitriptyline [From Elavil] Allergy (Verified 01/09/18 10:04) flu shot Allergy (Severe, Uncoded 02/27/20 14:01) Past Medical History - Social History Smoking Status: Current Every Day Smoker Family History: Other - Unknown to patient - Past Medical History Cardiac Medical History: Reports: Hx Coronary Artery Disease, Hx Heart Attack, Hx Hypercholesterolemia, Hx Hypertension Neurological Medical History: Reports: Hx Cerebrovascular Accident Endocrine Medical History: Reports: Hx Diabetes Mellitus Type 2 Renal/ Medical History: Denies: Hx Peritoneal Dialysis GI Medical History: Reports: Hx Irritable Bowel Psychiatric Medical History: Reports: Hx Depression, Hx Schizoaffective Disorder Past Surgical History: Reports: Hx Cardiac Catheterization - stent, Hx Cholecystectomy, Hx Hysterectomy, Hx Oral Surgery - wisdom teeth Review of Systems - Review of Systems Notes: Constitutional: No fevers. No chills. EENT: No eye redness. No eye pain. No ear pain. No sore throat. Cardiovascular: No chest pain. No palpitations. Respiratory: No cough. No shortness of breath. No respiratory distress. Gastrointestinal: No abdominal pain. No nausea, vomiting, or diarrhea. Genitourinary: Atraumatic. No lesions. No pain. No discharge. Musculoskeletal: Atraumatic. No swelling. No deformities. Skin: Positive for left gluteal and left perineal ulceration Lymphatic: No swollen lymph nodes. Neurologic: No headache. No syncope. Psychiatric: No suicidal or homicidal ideation. Physical Exam - Vital signs Vitals: Temp Pulse Resp BP Pulse Ox 98.7 F 82 16 125/68 98 02/27/20 14:05 02/27/20 14:05 02/27/20 14:05 02/27/20 14:05 02/27/20 14:05 - Notes Notes: General: Well-developed, well-nourished. In no acute distress. Non-toxic appearing. Cardiac: Well-perfused. Regular rate and rhythm. No murmurs, rubs, or gallops. Pulmonary: No respiratory distress. No cyanosis. Bilateral lung nicole are clear to auscultation. Abdominal: Non-distended. Non-rigid. Bowels sounds are present in all four quadrants. No guarding or rebound. HEENT: Head is atraumatic. Conjunctivae not reddened. No tearing. PERRL. EOMI. Orbits atraumatic. No periorbital swelling or erythema. Oropharynx is without erythema, swelling, or exudates. Neck: Supple. No adenopathy. No meningismus. Dermatologic: Large left gluteal ulceration which has eroded the epidermis and is to the layer of the subcutaneous fat. Local erythema. Exquisite tenderness to palpation. No subcutaneous crepitus. No pus or blood drainage. Chest: Atraumatic. No chest wall tenderness to palpation. Musculoskeletal: Moves all extremities well. No range of motion deficits. no muscular or joint tenderness. No paraspinal muscle tenderness. no midline spinal tenderness or step-off. Genitourinary: Examination deferred Neurologic: No gross neurologic deficits. Psychiatric: Normal mood. Course - Re-evaluation Re-evalutation: 02/27/20 18:15 Lab work ordered to rule out any abscess. She had a CT scan here on 01/08 that showed no evidence of gangrene. We will repeat that study to make sure that has not progressed any deeper even her history of diabetes and smoking and general noncompliance. 02/27/20 20:18 vegetable harvest worker consult and wound care consult have been put in. We will give the patient some pain medication to take in the meantime - Vital Signs Vital signs: Temp Pulse Resp BP Pulse Ox 98.7 F 82 16 125/68 98 02/27/20 14:05 02/27/20 14:05 02/27/20 14:05 02/27/20 14:05 02/27/20 14:05 - Laboratory Result Diagrams: 02/27/20 14:17 02/27/20 14:17 Laboratory results interpreted by me: 02/27/20 02/27/20 14:17 14:17 WBC 11.0 H RDW 15.9 H Lymph % (Auto) 12.2 L Absolute Neuts (auto) 9.0 H Seg Neutrophils % 81.7 H Est GFR (MDRD) Non-Af 55 L Glucose 133 H AST 39 H Discharge - Discharge Clinical Impression: Decubitus ulcer Qualifiers: Pressure injury location: buttock Pressure injury stage: stage 2 Laterality: left Qualified Code(s): L89.322 - Pressure ulcer of left buttock, stage 2 Condition: Good Disposition: HOME, SELF-CARE Instructions: Oral Narcotic Medication ([facility]), Soap Cleansing ([facility]) Additional Instructions: You will be contacted by the wound care center as well as our social work department to see if there is any home needs that can be met. Then is absolutely necessary. Prescriptions: Hydrocodone/Acetaminophen [Galt 7.5-325 mg Tablet] 1 tab PO Q6HP PRN #12 tablet PRN Reason: Severe Pain Referrals: NAYA NOEL FNP-C [NO LOCAL MD] - Follow up tomorrow
[2020-02-27] MEDS ORDERED: HYDROCODONE/ACETAMINOPHEN 5-325 MG (6 TAB/ER DISP) PO PRN (21:10)
[2020-02-27 21:20] VITALS: BP 105/74
== END 2020-02-27 21:27 | disposition home or self-care (01) ==
LOC: ER 13:43
DX: L89.322 Pressure ulcer of left buttock, stage 2 (principal); F17.200 Nicotine dependence, unspecified, uncomplicated; I25.10 Atherosclerotic heart disease of native coronary artery without angina pectoris; E78.00 Pure hypercholesterolemia, unspecified; I10 Essential (primary) hypertension; E11.9 Type 2 diabetes mellitus without complications; Z86.73 Personal history of transient ischemic attack (TIA), and cerebral infarction without residual deficits; Z90.49 Acquired absence of other specified parts of digestive tract
CPT/HCPCS: 99284; 96374; 96375; 36415; 87070; 87205; 83605; 85025; 80053; J2270; J2405; A9270; 87077

== ENCOUNTER 2020-03-27 14:02 | Emergency (ER) | payer MEDICARE ==
[2020-03-27] MEDS ORDERED: ACETAMINOPHEN 325 MG TABLET PO ONE (15:28)
[2020-03-27] MEDS ORDERED: NORMAL SALINE 1000 ML 1,000 ML IV ONE (15:33)
[2020-03-27] MEDS ORDERED: MORPHINE SULFATE 10 MG/ML INJ IV ONE ×2 (15:34→17:00)
--- NOTE | 2020-03-27 15:35 | ER Document Report ---
ED Wound - General Chief Complaint: Wound Infection Stated Complaint: WOUND CHECK Time Seen by Provider: 03/27/20 15:08 Primary Care Provider: MAL ALEJANDRA PA-C [Primary Care Provider] - Follow up in 3-5 days Notes: Patient is a 64-year-old male who presents the emergency department with a chief complaint with pain to her decubitus ulcer to her left medial buttock. Patient states that the area hurts. Patient states that she has had some chills. Patient had appointment with wound care yesterday, but did not go because she felt that she could get treated here in the emergency department. When EMS arrived, the patient was soiled in stool. Patient reports that she does have a problem with constipation due to not wanting to infect her wound. TRAVEL OUTSIDE OF THE [place] IN LAST 30 DAYS: No - Related Data Allergies/Adverse Reactions: codeine [Codeine] Allergy (Unknown, Verified 01/09/18 10:05) amitriptyline [From Elavil] Allergy (Verified 01/09/18 10:04) flu shot Allergy (Severe, Uncoded 02/27/20 14:01) Past Medical History - General Information source: Patient - Social History Smoking Status: Current Every Day Smoker Chew tobacco use (# tins/day): No Frequency of alcohol use: None Drug Abuse: None Family History: Other - Unknown to patient - Past Medical History Cardiac Medical History: Reports: Hx Coronary Artery Disease, Hx Heart Attack, Hx Hypercholesterolemia, Hx Hypertension Neurological Medical History: Reports: Hx Cerebrovascular Accident Endocrine Medical History: Reports: Hx Diabetes Mellitus Type 2 Renal/ Medical History: Denies: Hx Peritoneal Dialysis GI Medical History: Reports: Hx Irritable Bowel Psychiatric Medical History: Reports: Hx Depression, Hx Schizoaffective Disorder Past Surgical History: Reports: Hx Cardiac Catheterization - stent, Hx Cholecystectomy, Hx Hysterectomy, Hx Oral Surgery - wisdom teeth Review of Systems - Review of Systems Notes: REVIEW OF SYSTEMS: CONSTITUTIONAL : Denies recent unintentional weight loss. See HPI. EENT: Denies eye, ear, throat, or mouth pain, discharge, or symptoms. Denies nasal or sinus congestion. CARDIOVASCULAR: Denies chest pain. RESPIRATORY: Denies shortness of breath, cough, congestion, difficulty breathing, or wheezing. GASTROINTESTINAL: See HPI. GENITOURINARY: Denies difficulty urinating, burning, blood in urine, urgency or frequency. MUSCULOSKELETAL: Denies neck and back pain. Denies joint pain or swelling. SKIN: See HPI. HEMATOLOGIC : Denies easy bruising or bleeding. LYMPHATIC: Denies swollen, painful, enlarged glands. NEUROLOGICAL: Denies no numbness or tingling denies weakness. Denies headache. Denies altered mental status. Denies alteration in speech. PSYCHIATRIC: Denies stress, anxiety, alteration in sleep patterns, or depression. All other systems reviewed and negative. Physical Exam - Vital signs Vitals: Resp 30 H 03/27/20 14:51 - Notes Notes: PHYSICAL EXAMINATION: GENERAL: Appears chronically ill, mild distress due to pain. HEAD: Normocephalic, atraumatic. EYES: PERRL, conjunctiva normal, all extraocular movements intact, sclera nonicteric ENT: Moist mucous membranes. NECK: Supple, no noticeable swelling, redness, rash. Normal range of motion. LUNGS: Equal breath sounds bilaterally and clear to auscultation. No wheezes rales or rhonchi. CARDIOVASCULAR: S1-S2, regular rate, regular rhythm. Radial pulses 2+, normal. ABDOMEN: Normoactive bowel sounds. Soft, nontender, no guarding, no rebound tenderness, and no masses palpated. EXTREMITIES: Normal strength and range of motion, no pitting or edema. No cyanosis. NEUROLOGICAL: Moves all extremities upon command. Strength 5/5 in all e xtremities. PSYCH: Normal mood, normal affect. SKIN: Warm, decubitus ulcer noted to left medial buttock near anal/vaginal area. Course - Re-evaluation Re-evalutation: 03/27/20 20:12 CT does not show any abscess. Patient still has a mass in her lower pole of her left kidney. She is not having pain in this area. Radiologist recommends ultrasound for follow-up. Patient agrees to follow-up on an outpatient basis. For this. Patient does have some inflammation noted to her wound area. We will put her on clindamycin and [place] for pain relief. She is in agreement with this plan. No evidence of sepsis. Follow-up precautions were given. Verbal discharge instructions were given to the patient. They verbalized understan ding. They are stable for discharge. - Vital Signs Vital signs: Temp Pulse Resp BP Pulse Ox 98.9 F 79 18 131/69 H 96 03/27/20 21:58 03/27/20 21:58 03/27/20 21:58 03/27/20 21:58 03/27/20 21:58 - Laboratory Result Diagrams: 03/27/20 17:04 03/27/20 17:04 Laboratory results interpreted by me: 03/27/20 03/27/20 03/27/20 17:04 17:04 17:04 WBC 14.2 H RDW 16.7 H Lymph % (Auto) 5.8 L Absolute Neuts (auto) 12.8 H Seg Neutrophils % 90.4 H PT 22.6 H Glucose 117 H Discharge - Discharge Clinical Impression: Decubitus ulcer Qualifiers: Pressure injury location: buttock Pressure injury stage: stage 2 Laterality: left Qualified Code(s): L89.322 - Pressure ulcer of left buttock, stage 2 Cellulitis Qualifiers: Site of cellulitis: buttock Qualified Code(s): L03.317 - Cellulitis of buttock Condition: Stable Disposition: HOME, SELF-CARE Additional Instructions: You were seen today in emergency department for pain to your left buttock area. You have a small amount of cellulitis to the area. You are being started on antibiotics to help clear this up. You are also be sent home with [place]. You can take 1 tablet every 6 hours as needed for pain. Please follow-up with your regular doctor. You also have a stable mass noted on your left kidney. Please have your primary care provider have this evaluated by ultrasound. Please follow-up with your primary care provider in 3 to 5 days to evaluate your wound. Continue wound care. Call them tomorrow and reschedule your appointment. Please make sure you keep the area clean and dry. Prescriptions: Clindamycin HCl [Cleocin 150 mg Capsule] 300 mg PO Q6 7 Days #56 capsule Referrals: MAL ALEJANDRA PA-C [Primary Care Provider] - Follow up in 3-5 days
[2020-03-27 17:44] LABS: ABSOLUTE LYMPHOCYTES (AUTO) 0.8 10^3/uL (0.5-4.7); ABSOLUTE MONOCYTES (AUTO) 0.5 10^3/uL (0.1-1.4); ABSOLUTE NEUT (AUTO) 12.8 10^3/uL (1.7-8.2); BASOPHILS % (AUTO) 0.3 % (0-2); EOSINOPHILS % (AUTO) 0.2 % (0-6); HEMATOCRIT 37.8 % (36.0-47.0); HEMOGLOBIN 12.5 g/dL (12.0-15.5); LYMPHOCYTES % (AUTO) 5.8 % (13-45); MEAN CORPUSCULAR HEMOGLOBIN 27.1 pg (27.0-33.4); MEAN CORPUSCULAR VOLUME 82 fl (80-97); MONOCYTES % (AUTO) 3.3 % (3-13); PLATELET COUNT 202 10^3/uL (150-450); RED BLOOD COUNT 4.62 10^6/uL (3.72-5.28); RED CELL DISTRIBUTION WIDTH 16.7 % (11.5-14.0); SEGMENTED NEUTROPHILS % (AUTO) 90.4 % (42-78); TOTAL CELLS COUNTED % (AUTO) 100 %; WHITE BLOOD COUNT 14.2 10^3/uL (4.0-10.5)
[2020-03-27 17:48] LABS: INTERNATIONAL RATION (INR) 1.98; PROTHROMBIN TIME 22.6 SEC (11.4-15.4)
[2020-03-27 17:49] LABS: PARTIAL THROMBOPLASTIN TIME 35.4 SEC (23.5-35.8)
[2020-03-27 18:08] LABS: ALKALINE PHOSPHATASE 102 U/L (38-126); ANION GAP 11 (5-19); ASPARTATE AMINO TRANSFERASE 20 U/L (14-36); BILIRUBIN,DIRECT 0.2 mg/dL (0.0-0.4); BILIRUBIN,TOTAL 0.5 mg/dL (0.2-1.3); BLOOD UREA NITROGEN 16 mg/dL (7-20); CALCIUM 9.4 mg/dL (8.4-10.2); CARBON DIOXIDE 29 mmol/L (22-30); CHLORIDE 98 mmol/L (98-107); GLUCOSE 117 mg/dL (75-110); POTASSIUM 3.8 mmol/L (3.6-5.0); TOTAL PROTEIN 6.6 g/dL (6.3-8.2)
[2020-03-27] MEDS ORDERED: VANCOMYCIN HCL INJ 1000 MG VIAL IV ONE (19:09)
--- NOTE | 2020-03-27 19:21 | RADIOLOGY REPORT (SQ) ---
EXAM DESCRIPTION: CT ABD/PELVIS WITH IV ONLY IMAGES COMPLETED DATE/TIME: 03/27/2020 6:54 pm REASON FOR STUDY: eval possible abcess? left medial buttock COMPARISON: None. TECHNIQUE: CT scan of the abdomen and pelvis performed using helical scanning technique with dynamic intravenous contrast injection. No oral contrast. Images reviewed with lung, soft tissue, and bone windows. Reconstructed coronal and sagittal MPR images reviewed. Delayed images for evaluation of the urinary system also acquired. All images stored on PACS. Images acquired through the area of concern in the buttocks. All CT scanners at this facility use dose modulation, iterative reconstruction, and/or weight based d osing when appropriate to reduce radiation dose to as low as reasonably achievable (ALARA). [facility]: Dose Right [facility]: CareDose [facility]: Dose Right [facility]: Teradose 4D [facility]: GENERAL MEDICAL MERATE CONTRAST TYPE AND DOSE: contrast/concentration: Isovue 350.00 mmol/ml; Total Contrast Delivered: 89. 5 ml; Total Saline Delivered: 9.9 ml RENAL FUNCTION: GFR > 60. RADIATION DOSE: CT Rad equipment meets quality standard of care and radiation dose reduction techniq ues were employed. CTDIvol: 18.5 mGy. DLP: 906 mGy-cm.. LIMITATIONS: None. FINDINGS: LOWER CHEST: No significant findings. No nodules or infiltrates. LIVER: Normal size. No masses. No dilated ducts. SPLEEN: Normal size. No focal lesions. PANCREAS: No masses. No significant calcifications. No adjacent inflammation or peripancreatic fluid collections. Pancreatic duct not dilated. GALLBLADDER: Surgically absent. ADRENAL GLANDS: Calcified right adrenal cyst. Left adrenal normal. RIGHT KIDNEY AND URETER: Simple cyst No significant calcifications. No hydronephrosis or hydroure ter. LEFT KIDNEY AND URETER: 6 cm mass lower pole the left kidney. Hounsfield units greater than 25. Pos sible solid mass. No significant calcifications. No hydronephrosis or hydroureter. AORTA AND VESSELS: No aneurysm. No dissection. Renal arteries, SMA, celiac without stenosis. RETROPERITONEUM: No retroperitoneal adenopathy, hemorrhage or masses. BOWEL AND PERITONEAL CAVITY: No masses or inflammatory changes. No free fluid or peritoneal masses. APPENDIX: Normal. PELVIS: No mass. No free fluid. Normal bladder. ABDOMINAL WALL: No masses. No hernias. BONES: No significant or acute findings. OTHER: No identified mass in the left medial buttock. Consider ultrasound if strong clinical suspici on. IMPRESSION: Possible solid mass lower pole the left kidney. Recommend ultrasound evaluation. No identified mass in the left medial chronic. Consider ultrasound if strong clinical suspicion. TECHNICAL DOCUMENTATION: JOB ID: [id number] Quality ID # [id number]: Final reports with documentation of one or more dose reduction techniques (e.g., Au tomated exposure control, adjustment of the mA and/or kV according to patient size, use of iterative reconstruction technique) 2010 [employer]- All Rights Reserved Reading location - IP/workstation name: [email or web address]
[2020-03-27] MEDS ORDERED: HYDROCODONE/ACETAMINOPHEN 5-325 MG (6 TAB/ER DISP) PO PRN (20:12)
[2020-03-27] MEDS ORDERED: CLINDAMYCIN HCL 150 MG CAPSULE PO ONE (20:13)
[2020-03-27 22:01] VITALS: BP 131/69
== END 2020-03-27 21:58 | disposition home or self-care (01) ==
LOC: ER 14:02
DX: L89.322 Pressure ulcer of left buttock, stage 2 (principal); L03.317 Cellulitis of buttock; Z88.8 Allergy status to other drugs, medicaments and biological substances; F17.200 Nicotine dependence, unspecified, uncomplicated; I25.10 Atherosclerotic heart disease of native coronary artery without angina pectoris; I25.2 Old myocardial infarction; I10 Essential (primary) hypertension; E11.9 Type 2 diabetes mellitus without complications
CPT/HCPCS: 99285; 96361; 96374; 96375; 36415; 85025; 85610; 85730; 80053; 74177; A9270 ×2; J2270; J7030

== ENCOUNTER 2020-04-03 13:19 | Emergency (ER) | payer MEDICARE ==
[2020-04-03 14:08] LABS: ABSOLUTE BASOPHILS # (AUTO) 0.1 10^3/uL (0.0-0.2); ABSOLUTE EOSINOPHILS # (AUTO) 0.1 10^3/uL (0.0-0.6); ABSOLUTE LYMPHOCYTES (AUTO) 1.1 10^3/uL (0.5-4.7); ABSOLUTE MONOCYTES (AUTO) 0.5 10^3/uL (0.1-1.4); ABSOLUTE NEUT (AUTO) 8.7 10^3/uL (1.7-8.2); BASOPHILS % (AUTO) 0.7 % (0-2); HEMATOCRIT 36.9 % (36.0-47.0); HEMOGLOBIN 12.3 g/dL (12.0-15.5); LYMPHOCYTES % (AUTO) 10.8 % (13-45); MEAN CORPUSCULAR HEMOGLOBIN 26.9 pg (27.0-33.4); MEAN CORPUSCULAR HGB CONC 33.2 g/dL (32.0-36.0); MEAN CORPUSCULAR VOLUME 81 fl (80-97); MONOCYTES % (AUTO) 5.1 % (3-13); PLATELET COUNT 201 10^3/uL (150-450); RED BLOOD COUNT 4.57 10^6/uL (3.72-5.28); RED CELL DISTRIBUTION WIDTH 16.7 % (11.5-14.0); SEGMENTED NEUTROPHILS % (AUTO) 82.4 % (42-78); TOTAL CELLS COUNTED % (AUTO) 100 %; WHITE BLOOD COUNT 10.5 10^3/uL (4.0-10.5)
[2020-04-03 14:30] LABS: ALBUMIN 3.8 g/dL (3.5-5.0); ALKALINE PHOSPHATASE 93 U/L (38-126); ANION GAP 9 (5-19); ASPARTATE AMINO TRANSFERASE 18 U/L (14-36); BILIRUBIN,DIRECT 0.1 mg/dL (0.0-0.4); BILIRUBIN,TOTAL 0.4 mg/dL (0.2-1.3); BLOOD UREA NITROGEN 12 mg/dL (7-20); CALCIUM 9.3 mg/dL (8.4-10.2); CARBON DIOXIDE 32 mmol/L (22-30); CHLORIDE 97 mmol/L (98-107); GLUCOSE 124 mg/dL (75-110); POTASSIUM 3.8 mmol/L (3.6-5.0); TOTAL PROTEIN 6.6 g/dL (6.3-8.2)
[2020-04-03] MEDS ORDERED: HYDROMORPHONE HCL INJ/PF 2 MG/ML AMPULE IV ONE (15:25)
[2020-04-03] MEDS ORDERED: ONDANSETRON HCL INJ/PF 4 MG/2 ML SDV IV ONE (15:25)
[2020-04-03] MEDS ORDERED: HYDROCODONE/ACETAMINOPHEN 5-325 MG TABLET PO ONE (16:00)
--- NOTE | 2020-04-03 16:21 | ER Document Report ---
ED General - General Chief Complaint: Abscess Stated Complaint: ABSCESS Primary Care Provider: MAL ALEJANDRA PA-C [Primary Care Provider] - Follow up in 3-5 days OSCAR BECKER MD [ACTIVE STAFF] - Follow up in 3-5 days Notes: 64-year-old female with diabetes and hypertension presents with worsening left buttock wounds for several weeks. Patient has been seen in the ED and had negative CT scan approximately 1 week ago and followed up at surgery clinic for wound care but has missed follow-up appointments. Patient feels nauseous, and does endorse pain with defecation. Patient denies any recent antibiotics for symptoms, vomiting, abdominal pain, inability to pass stool, fever TRAVEL OUTSIDE OF THE [place] IN LAST 30 DAYS: No - Related Data Allergies/Adverse Reactions: codeine [Codeine] Allergy (Unknown, Verified 04/03/20 13:25) amitriptyline [From Elavil] Allergy (Verified 04/03/20 13:25) flu shot Allergy (Severe, Uncoded 04/03/20 13:25) Past Medical History - General Information source: Patient, [facility] Records - Social History Smoking Status: Current Every Day Smoker Family History: Other - Unknown to patient Patient has homicidal ideation: No - Past Medical History Cardiac Medical History: Reports: Hx Coronary Artery Disease, Hx Heart Attack, Hx Hypercholesterolemia, Hx Hypertension Neurological Medical History: Reports: Hx Cerebrovascular Accident Endocrine Medical History: Reports: Hx Diabetes Mellitus Type 2 Renal/ Medical History: Denies: Hx Peritoneal Dialysis GI Medical History: Reports: Hx Irritable Bowel Psychiatric Medical History: Reports: Hx Depression, Hx Schizoaffective Disorder Past Surgical History: Reports: Hx Cardiac Catheterization - stent, Hx Cholecystectomy, Hx Hysterectomy, Hx Oral Surgery - wisdom teeth Review of Systems - Review of Systems Notes: REVIEW OF SYSTEMS: CONSTITUTIONAL : Denies fever, chills, or sweats. EENT: Denies recent cold/sinus symptoms, denies throat pain CARDIOVASCULAR: Denies chest pain, TRINI RESPIRATORY: Denies cough, denies shortness of breath. GASTROINTESTINAL: Denies abdominal pain, nausea/vomiting. GENITOURINARY: Denies difficulty urinating, painful urination. FEMALE GENITOURINARY: Denies abnormal vaginal bleeding, vaginal discharge. MUSCULOSKELETAL: Denies neck pain, back pain. SKIN: + rash or skin lesions. HEMATOLOGIC : Denies easy bruising or bleeding. LYMPHATIC: Denies swollen, enlarged glands. NEUROLOGICAL: Denies headache, denies change in gait. PSYCHIATRIC: Denies anxiety or stress or depression. Physical Exam - Vital signs Vitals: Temp Pulse Resp BP Pulse Ox 98.2 F 84 21 H 108/68 98 04/03/20 13:26 04/03/20 13:26 04/03/20 13:26 04/03/20 13:26 04/03/20 13:26 - Notes Notes: PHYSICAL EXAMINATION: GENERAL: Uncomfortable appearing secondary to pain from wound but nontoxic- appearing middle-aged woman in no acute distress HEAD: Atraumatic, normocephalic. EYES: Pupils equal round and appropriate constriction, sclera anicteric, conjunctiva are normal. ENT: nares patent, moist mucous membranes. NECK: Normal range of motion, supple without lymphadenopathy LUNGS: Breath sounds clear to auscultation bilaterally and equal. No wheezes rales or rhonchi. HEART: Regular rate and rhythm without murmurs ABDOMEN: Soft, nontender, no guarding, no masses, no CVAT. Patient refused rectal exam secondary to pain. EXTREMITIES: Normal range of motion, no pitting or edema. No cyanosis. NEUROLOGICAL: Awake, alert, conversing appropriately, moves all extremities spontaneously. PSYCH: Normal mood, normal affect. SKIN: Warm, Dry, normal turgor, ~3x8 cm ulcer of medial left buttock without any discharge, surrounding erythema, abnormal warmth, or surrounding erythema Course - Re-evaluation Re-evalutation: 04/03/20 16:20 Patient with severe pain from buttock/perianal cellulitis, pain with defecation, rule out perianal/perirectal abscess. Patient otherwise has no systemic symptoms, normal vital signs, and nontoxic appearance. Will give pain control and obtain CT abdomen pelvis with IV contrast to rule out abscess and reassess. 04/03/20 20:40 Able to fully examine patient after applying topical lidocaine and there are no obvious signs of infection of ulcer but given increased pain and diabetes hx will start patient on Keflex. Patient has been having difficulty getting to doctors appointments to follow-up with wound care so will place social work consult to see if there are any visiting nurse services that can assist patient in maintaining her wounds as she has potential for complications if wound is not cared for adequately. Gave fluconazole as there is area of with friable mucosa that patient says has been itchy and appears to be secondary to vulvovaginitis. Gave patient extensive return to ED precautions which she demonstrated understanding of. Patient has left kidney mass on CT which was seen on prior CT and is unchanged. I spoke to patient and her sister at patient's request regarding this which she says that she was informed of previously and knows that she needs to follow-up about. I stressed that the mass could be something dangerous such as kidney cancer and that it is important for her to follow-up closely with urology. Will give patient CD of CT results. Patient ready for discharge. - Vital Signs Vital signs: Temp Pulse Resp BP Pulse Ox 98.0 F 56 L 20 101/51 L 92 04/03/20 20:50 04/03/20 20:50 04/03/20 20:50 04/03/20 20:50 04/03/20 20:50 - Laboratory Result Diagrams: 04/03/20 13:47 04/03/20 13:47 Laboratory results interpreted by me: 04/03/20 04/03/20 13:47 13:47 MCH 26.9 L RDW 16.7 H Lymph % (Auto) 10.8 L Absolute Neuts (auto) 8.7 H Seg Neutrophils % 82.4 H Chloride 97 L Carbon Dioxide 32 H Glucose 124 H Discharge - Discharge Clinical Impression: Vulvovaginitis, Renal mass Pressure ulcer, buttock Qualifiers: Pressure injury stage: stage 2 Laterality: left Qualified Code(s): L89.322 - Pressure ulcer of left buttock, stage 2 Disposition: HOME, SELF-CARE Additional Instructions: Follow-up in 3 to 5 days with wound care and with your primary doctor. If you feel like you have a fever measure your temperature. If you have any temperature of 100.4 or higher, vomiting, inability to pass stool, worsening pain, spreading pain, or any other worsening or alarming symptoms return to the emergency department immediately. You will have a mass on your left kidney that could be something dangerous such as cancer and is extremely important that you follow-up with a urologist to further investigate this. Follow-up with urology within 1 week. Prescriptions: Cephalexin Monohydrate [Keflex 500 mg Capsule] 500 mg PO Q6H 14 Days #56 capsule Referrals: [place],MAL, PA-C [Primary Care Provider] - Follow up in 3-5 days OSCAR BECKER MD [ACTIVE STAFF] - Follow up in 3-5 days KELLY FARRIS MD [NO LOCAL MD] - Follow up in 1 week SVETLANA RAMOS MD [NO LOCAL MD] - Follow up in 1 week
--- NOTE | 2020-04-03 16:32 | RADIOLOGY REPORT (SQ) ---
EXAM DESCRIPTION: CT ABD/PELVIS WITH IV ONLY IMAGES COMPLETED DATE/TIME: 04/03/2020 4:15 pm REASON FOR STUDY: buttock wound/abscess diabetes COMPARISON: 03/27/2020 TECHNIQUE: CT scan of the abdomen and pelvis performed using helical scanning technique with dynamic intravenous contrast injection. No oral contrast. Images reviewed with lung, soft tissue, and bone windows. Reconstructed coronal and sagittal MPR images reviewed. Delayed images for evaluation of the urinary system also acquired. All images stored on PACS. All CT scanners at this facility use dose modulation, iterative reconstruction, and/or weight based d osing when appropriate to reduce radiation dose to as low as reasonably achievable (ALARA). [facility]: Dose Right [facility]: CareDose [facility]: Dose Right [facility]: Teradose 4D [facility]: [employer] CONTRAST TYPE AND DOSE: contrast/concentration: Isovue 350.00 mmol/ml; Total Contrast Delivered: 97. 0 ml; Total Saline Delivered: 65.9 ml RENAL FUNCTION: GFR > 60. RADIATION DOSE: CT Rad equipment meets quality standard of care and radiation dose reduction techniq ues were employed. CTDIvol: 18.2 - 20.2 mGy. DLP: 2320 mGy-cm.. LIMITATIONS: None. FINDINGS: No significant change from 03/27/2020. 6 cm possible solid mass lower pole left kidney. S table cysts right kidney. No developing bowel obstruction. No free air or ascites. IMPRESSION: No significant change. No acute findings. TECHNICAL DOCUMENTATION: JOB ID: [id number] Quality ID # [id number]: Final reports with documentation of one or more dose reduction techniques (e.g., Au tomated exposure control, adjustment of the mA and/or kV according to patient size, use of iterative reconstruction technique) 2010 [employer]- All Rights Reserved Reading location - IP/workstation name: [email or web address]
[2020-04-03] MEDS ORDERED: LIDOCAINE 2% JELLY 5 ML TUBE TOP ONE (17:55)
[2020-04-03] MEDS ORDERED: FLUCONAZOLE 100 MG TABLET PO ONE (17:55)
[2020-04-03] MEDS ORDERED: CEPHALEXIN 500 MG CAPSULE PO ONE (17:56)
[2020-04-03] MEDS ORDERED: HYDROCODONE/ACETAMINOPHEN 5-325 MG (6 TAB/ER DISP) PO PRN (20:45)
[2020-04-03 20:54] VITALS: BP 101/51
== END 2020-04-03 23:04 | disposition home or self-care (01) ==
LOC: ER 13:19
DX: N76.0 Acute vaginitis (principal); L02.31 Cutaneous abscess of buttock; L89.322 Pressure ulcer of left buttock, stage 2; N28.89 Other specified disorders of kidney and ureter; R11.0 Nausea; Z88.8 Allergy status to other drugs, medicaments and biological substances; F17.200 Nicotine dependence, unspecified, uncomplicated; I25.10 Atherosclerotic heart disease of native coronary artery without angina pectoris; I10 Essential (primary) hypertension
CPT/HCPCS: 99285; 96374; 96375; 36415; 87040; 85025; 80053; 74177; A9270 ×4; J1170; J2405